=== PATIENT | female | born 1995 | race Caucasian/White ===

== ENCOUNTER 2019-04-24 09:45 | Outpatient (CLI) | payer BC, SELFPAY ==
--- NOTE | ~2019-04-24 | US_ITS ---
EXAMINATION: US OB <=14 wk fetus w TV DATE: 04/24/2019 10:28 INDICATION: First trimester dating TECHNIQUE: Real-time pelvic transabdominal and transvaginal ultrasound was performed. COMPARISON: None. FINDINGS: The uterus measures 11.1 x 5.8 x 4.2 cm. There is an intrauterine gestational sac. The mean sac diameter measures 1.0 cm which correlates with an estimated gestational age of 5 weeks and 4 day (s) (+/-) 4 day(s). No pole is identified. The right ovary measures 2.4 x 2.8 x 1.9 cm. The left ovary measures 2.2 x 1.8 x 2.1 cm. There is no free fluid in the pelvis. IMPRESSION: 1. Intrauterine gestational sac with an estimated gestational age of 5 weeks and 4 day(s) (+/-) 4 day (s) and an estimated delivery date of 12/21/2019 based on mean sac diameter. pole not seen, like ly due to early gestation. Reviewed, dictated and finalized at location A. USSION INSTRUMENT TUNER IMPRESSION: 1. Intrauterine gestational sac with an estimated gestational age of 5 weeks an d 4 day(s) (+/-) 4 day(s) and an estimated delivery date of 12/21/2019 based on mean sac diameter. pole not seen, likely due to early gestation.
== END 2019-04-24 09:46 | disposition home or self-care (01) ==
LOC: ANHIMG 09:50
PROVIDERS: PCP Family Medicine; Visit Provider Obstetrics & Gynecology
DX: Z36.9 Encounter for antenatal screening, unspecified (principal); Z3A.01 Less than 8 weeks gestation of pregnancy
CPT/HCPCS: 76801; 76817

== ENCOUNTER 2019-05-04 15:12 | Outpatient (CLI) | payer BC, SELFPAY ==
--- NOTE | ~2019-05-04 | US_ITS ---
EXAMINATION: US OB <=14 wk fetus w TV DATE: 05/04/2019 16:21 INDICATION: Suspicion of menses. Irregular menstruation. TECHNIQUE: Real-time pelvic ultrasound utilizing both a transvaginal and transabdominal probe was pe rformed. The interpreting radiologist was not present for the study. COMPARISON: None. FINDINGS: The uterus measures 11.1 x 4.4 x 5.8 cm. There is an intrauterine gestational sac with double decidu a sign and suggestion of subtle yolk sac but with no discernible pole. The in sac diameter unique ures 1.6 cm, which correlates with an estimated gestational age of 6 weeks and 3 days. The right ovary is not visualized. The left ovary measures 4.7 x 2.5 x 2.7 cm. Normal vascular flow o n the left ovary on color Doppler. There is no free fluid in the pelvis. IMPRESSION: 1. Intrauterine gestational sac with no discernible pole which could be due to early or failed . 2. Gestational age by ultrasound based upon mean sac diameter of 6 weeks 3 day(s) +/- 4 day(s) with ultrasound estimated date of delivery (HECTOR) of 12/25/2019. Consider short interval follow-up ultrasoun d for confirmation of viable and more definitive dating of . Reviewed, dictated and finalized at location A. MA DIRECTOR IMPRESSION: 1. Intrauterine gestational sac with no discernible pole which could be d ue to early or failed . 2. Gestational age by ultrasound based upon mean sac diameter of 6 weeks 3 day (s) +/- 4 day(s) with ultrasound estimated date of delivery (HECTOR) of 12/25/2019. Consider short interval follow-up ultrasound for confirmation of viable pregna ncy and more definitive dating of .
== END 2019-05-04 15:13 | disposition home or self-care (01) ==
LOC: ANHIMG 15:17
PROVIDERS: Visit Provider Obstetrics & Gynecology
DX: N92.5 Other specified irregular menstruation (principal); Z3A.01 Less than 8 weeks gestation of pregnancy
CPT/HCPCS: 76801; 76817

== ENCOUNTER 2019-05-19 15:30 | Outpatient (CLI) | payer BC, SELFPAY ==
--- NOTE | ~2019-05-19 | US_ITS ---
EXAMINATION: US OB <=14 wk fetus w TV DATE: 05/19/2019 16:30 INDICATION: Threatened , first trimester TECHNIQUE: Real-time pelvic transabdominal and transvaginal ultrasound was performed. COMPARISON: 05/04/2019, 04/23/2019 FINDINGS: The uterus measures 8.7 x 5.3 x 6.7 cm. There is an intrauterine gestational sac. There ar e subtle internal echoes within the gestational sac. No pole or yolk sac are identified. The me an sac diameter is 2.0 cm which correlates with an estimated gestational age of 6 weeks and 6 day(s) (+/-) 4 day(s). Mean sac diameter previously measured 1.6 cm. Interval change in growth is discordant with time interval. The right ovary measures 3.5 x 2.5 x 2.1 cm. The left ovary measures 3.4 x 2.1 x 2.8 cm. There is tra ce free fluid in the pelvis. IMPRESSION: 1. Intrauterine gestational sac with absence of an embryo with a heart beat greater than two weeks si nce prior ultrasound demonstrated a gestational sac without yolk sac. Findings are diagnostic of preg eliseo failure. Reviewed, dictated and finalized at location A. K PROCESSOR IMPRESSION: 1. Intrauterine gestational sac with absence of an embryo with a heart beat gre ater than two weeks since prior ultrasound demonstrated a gestational sac witho ut yolk sac. Findings are diagnostic of failure.
== END 2019-05-19 15:31 | disposition home or self-care (01) ==
PROVIDERS: Visit Provider Obstetrics & Gynecology
DX: O20.0 Threatened abortion (principal); Z3A.00 Weeks of gestation of pregnancy not specified
CPT/HCPCS: 76801; 76817

== ENCOUNTER 2019-05-27 00:34 | Day surgery (SDC) | payer BC, SELFPAY ==
[2019-05-26 10:14] VITALS: BMI 22.8
--- NOTE | 2019-05-27 07:46 | PM.IMHP ---
H&P: HPI History of Present Illness Chief complaint: Missed AB Narrative: Kassy Brooke is a 24 year old female 11 weeks by LMP has had serial us showing 6 week GS with no cardiac activity. No sig bleed or cramp, had opted for expectant management. As no change and not passed would like D&C to evacuate uterine contents. Review of Systems Review of Systems: All systems reviewed & are unremarkable except as noted in HPI and below PMFSH Past Medical History Medical History Anxiety Depression Family History Family History Sibling Asthma Social History Social History Smoking status: Never smoker Alcohol intake: current Meds Home Medications and Allergies Home Medications Medication Instructions Recorded Confirmed Type 21-iron fu-folic acid 1 tablet PO DAILY 05/26/19 05/26/19 History [ Complete] Allergies Allergy/AdvReac Type Severity Reaction Status Date / Time No Known Allergies Allergy Verified 05/26/19 10:15 Exam Const: General: no acute distress Resp: Auscultation: clear to auscultation bilaterally Cardio: Rate: regular rate Rhythm: regular rhythm GI: GI Palp: Yes Soft to palpation Auscultation: normal bowel sounds : External Female Exam: normal external appearance Other: uterus 8 week size Assessment and Plan Assessment and plan (1) Missed : Code(s): O02.1 - Missed Status: Acute Assessment and Plan: suction curettage
[2019-05-27 13:00] VITALS: BP 109/68; PULSE 72; RESP 18; TEMP 36.8; O2SAT 100
[2019-05-27] MEDS: LACTATED RINGERS 1,000 ML 30 ML IV CONT (13:00)
--- NOTE | 2019-05-27 13:15 | WPDANESEPPF ---
Anes - Initial Pre Proc Eval Procedure: Operation Date: 05/27/19 14:30 Proposed Procedures p Suction Dilation And Curettage - Bubba Carpio MD Date/Time: 05/27/19 13:15 Surgeon: Bubba Carpio MD Pre Op Diagnosis: Missed AB Patient Data Age: 24 Gender: F Height: 1.57 m Weight: 56.7 kg Allergies Allergy/AdvReac Type Severity Reaction Status Date / Time No Known Allergies Allergy Verified 05/26/19 10:15 Home Medications Medication Instructions Recorded Confirmed Type 21-iron fu-folic acid 1 tablet PO DAILY 05/26/19 05/26/19 History [ Complete] oxycodone-acetaminophen [Percocet] 1 tablet PO Q4H PRN #10 tablet 05/27/19 Rx Patient hx anesthesia problems: none Family hx anesthesia problems: none PMFSH Past Medical History Medical History Anxiety Depression Family History Family History Sibling Asthma Social History Social History Smoking status: Never smoker Alcohol intake: current Anes - Eval Final PreProcedure Day of Procedure 05/27/19 13:15 Patient weight: normal Heart: regular rate and rhythm Lungs: clear to auscultation and normal air movement Airway: Mallampati scale class 1 Neurological: alert and oriented Last oral intake: >/= 8 hours ASA classification: II Emergent: no Anesthetic plan: proceed Anesthesia type and monitoring: general GIVS and standard monitoring Informed Consent: The patient's anesthetic plan and its attendant risks and benefits were discussed with the patient/family/POA. Questions were solicited and answers provided to the satisfaction of the patient/family/POA.
[2019-05-27] MEDS: KETOROLAC 30 MG/ML VIAL (*BKC) IV PUSH (14:26)
[2019-05-27 14:32] VITALS: BP 124/78; PULSE 81; RESP 18; O2SAT 100
--- NOTE | 2019-05-27 14:32 | PM.OP ---
Procedure Note - Brief Procedure Note - Brief Date of procedure: 05/27/19 Pre-op diagnosis: Missed AB Post-op diagnosis: same Procedure performed: suction curettage Description of procedure: Patient was prepped and draped in the usual manner for this procedure. Cervix grasped with single-tooth tenaculum and dilated to allow the 8mm suction curette to be placed. Current was then used to remove the endometrial tissue. Sharp curette throughout with no significant tissue remaining. No significant bleeding. Suction curette was placed 1 last time with no significant bleeding. At this point seizure was considered terminated. Patient was then sent to recovery room in stable condition. Anesthesia: GLMA Surgeon: Bubba Carpio MD Estimated blood loss (mL): 50 Drains: No Packing: No Pathology: yes Complications: No immediate complications Condition: stable Disposition: PACU Findings: moderate POC
[2019-05-27 15:02] VITALS: BP 100/61; PULSE 89; RESP 14
[2019-05-27 15:32] VITALS: BP 103/64; PULSE 82; RESP 14
[2019-05-27 15:58] VITALS: BP 111/60; PULSE 76; RESP 14
[2019-05-27] MEDS: RHO(D) IMMUNE GLOBULIN 300 MCG SYRINGE IM (16:19)
== END 2019-05-27 16:30 | disposition home or self-care (01) ==
PROVIDERS: PCP Family Medicine; Visit Provider Obstetrics & Gynecology
PROC: (CPT 59820; principal; 2019-05-27 14:30)
DX: O02.1 Missed abortion (principal)
CPT/HCPCS: 59820; 36415; 86850; 86900; 86901; 88305; 90384; A9270; J1885; J2250; J2405; J2704; J2790; J3010; J7120

== ENCOUNTER 2019-08-18 09:22 | Emergency (ER) | payer BC, SELFPAY ==
[2019-08-18 09:30] VITALS: BP 119/68; PULSE 74; RESP 16; TEMP 37.2; O2SAT 100
--- NOTE | 2019-08-18 09:40 | ED.URI ---
HPI - URI/Sore Throat General Stated Complaint: ear pain/itching Time Seen by Provider: 08/18/19 09:40 Source: patient and RN notes reviewed History of Present Illness HPI Narrative: Patient is a 24-year-old female that presents the urgent care with complaints of left ear pain. Patient states that it started yesterday morning and she has been putting [id number] generic eardrops in the ear. Patient denies any use of peroxide, water, Q-tips in the ear. Denies recent swimming. Denies of any fever, nausea, vomiting. Has been using Tylenol as needed for pain. Patient states that she had a miscarriage in March but is actively trying to get however, has not started her period again. No other acute complaints. No acute distress noted. Patient aware the plan of care. Related Data Allergies Allergy/AdvReac Type Severity Reaction Status Date / Time No Known Allergies Allergy Verified 08/18/19 09:44 Review of Systems Review of Systems: Narrative: CONSTITUTIONAL: Denies fever, chills, or sweats. EYES: Denies visual changes, redness, or discharge. ENT: Reports of left ear pain CARDIOVASCULAR: Denies chest pain, palpitations, or edema. RESPIRATORY: Denies cough or dyspnea. GASTROINTESTINAL: Denies abdominal pain, nausea, vomiting, or diarrhea. GENITOURINARY: Denies dysuria or hematuria. SKIN: Denies rash or itching. MUSCULOSKELETAL: Denies back pain, joint pain, or myalgia. NEUROLOGIC: Denies headache, numbness, or weakness. All other systems reviewed are negative, except as documented in HPI. PMFSH Social History Social History Smoking status: Never smoker Alcohol intake: current Comments At the time of my signature, I reviewed and agree with the nursing past medical, surgical, social, and family history. There is no relevant family history pertinent to the patient complaint. Exam Narrative: Exam Narrative: GENERAL: This is a well-nourished, well-developed patient, in no apparent distress. HEAD: normocephalic, atraumatic. EYES: PERRL. Sclera clear/white. Vision is grossly intact. EARS: External ears normal, right auditory canals clear and without drainage, left auditory canal with notable moderate edema and clear drainage with erythemic and slightly injected left TM, right TMs normal without perforation. Hearing grossly intact. NOSE: External nose normal with no obvious nasal discharge, nares without redness, no rhinorrhea. THROAT: Mucous membranes moist NECK: Neck supple, non-tender without lymphadenopathy, masses or thyromegaly. CARDIOVASCULAR: Regular rate and rhythm without murmurs, gallops, or rubs. RESPIRATORY: Clear to auscultation. Breath sounds equal bilaterally. No wheezes, rales, or rhonchi. SKIN: warm, intact with no suspicious lesions or rash, good texture and turgor. NEURO: awake, alert, and oriented to person, place and time. There were no obvious focal neurologic abnormalities. EXTREMITIES: No clubbing, cyanosis, or edema. Course Vital Signs Vital signs: Vital Signs Temperature 98.9 F 08/18/19 09:30 Pulse Rate 74 08/18/19 09:30 Respiratory Rate 16 08/18/19 09:30 Blood Pressure 119/68 08/18/19 09:30 Pulse Oximetry 100 08/18/19 09:30 Temperature 98.9 F 08/18/19 09:30 Pulse Rate 74 08/18/19 09:30 Respiratory Rate 16 08/18/19 09:30 Blood Pressure 119/68 08/18/19 09:30 Pulse Oximetry 100 08/18/19 09:30 Reviewed MDM - URI/Sore Throat MDM Narrative Medical decision making narrative: Advised the patient to use prescription eardrops as directed to the left ear. Complete oral antibiotic regimen as prescribed. Make sure to eat and drink with the medication. Continue to use Tylenol as needed for pain. May also use a cool compress to the outside of the ear for comfort. Do not use anything in the ear with the exception of prescription eardrops such as, Q-tips, peroxide, water. If you develop any increase in s
== END 2019-08-18 09:55 | disposition home or self-care (01) ==
PROVIDERS: Emergency Provider Nurse Practitioner Family; PCP Family Medicine
DX: H60.502 Unspecified acute noninfective otitis externa, left ear (principal); H66.92 Otitis media, unspecified, left ear
CPT/HCPCS: 99213; G0463

== ENCOUNTER 2019-12-17 12:33 | Outpatient (CLI) | payer BC, SELFPAY ==
--- NOTE | ~2019-12-17 | US_ITS ---
EXAMINATION: US OB <= 14 weeks fetus DATE: 12/17/2019 13:33 INDICATION: Suppression of menstruation. TECHNIQUE: Real-time transabdominal and transvaginal obstetric ultrasound. FINDINGS: No prior studies for comparison. The uterus measures 14.3 x 9.8 x 5.1 cm. There is an intrauterine gestational sac, with pole id entified. The crown rump length measures 2 cm, which correlates with a estimated gestational age of 8 weeks 4 days. heart tones are identified measuring 145 BPM. Ovaries are normal with follicu lar changes. No significant ovarian or adnexal mass. IMPRESSION: 1. SL IUP with an EGA of 8 weeks, 4 days (EDC by current ultrasound of 07/24/2020). Reviewed, dictated and finalized at location A. IMPRESSION: 1. SL IUP with an EGA of 8 weeks, 4 days (EDC by current ultrasound of 07/25/19).
== END 2019-12-17 12:34 | disposition home or self-care (01) ==
LOC: ANHIMG 12:36
PROVIDERS: PCP Family Medicine; Visit Provider Obstetrics & Gynecology
DX: Z34.91 Encounter for supervision of normal pregnancy, unspecified, first trimester (principal); Z3A.08 8 weeks gestation of pregnancy
CPT/HCPCS: 76801

== ENCOUNTER 2020-05-19 14:14 | Outpatient (CLI) | payer BC, SELFPAY ==
[2020-05-19 14:39] VITALS: BP 116/65; PULSE 94
[2020-05-19 14:46] VITALS: BP 111/61; BP 116/65; PULSE 87; PULSE 96; TEMP 37.2
--- NOTE | 2020-05-19 14:50 | PC.NURSE ---
Dr. 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 Instructed pt to stop folding her socks down because they are too tight and to start wearing compression stockings. Informed of BP's, reactive NST, temp 99.0 and pt was feeling 4 contractions per hour while working. 1 contraction noted on monitor at this time. Orders received to discharge pt to home.
[2020-05-19 15:01] VITALS: BP 109/62; PULSE 97
[2020-05-19 15:15] VITALS: BP 109/62; PULSE 99; TEMP 36.7
--- NOTE | 2020-05-20 09:43 | PM.OBTRLD ---
OB - Triage/Final Diagnosis Visit Information Comments/Additional reasons for admission: I have assessed the risk for this patient, Kassy Brooke, and determined that she would benefit from observation care. Evaluation Vital signs: Vital Signs - 24 hr 05/19/20 14:39 05/19/20 14:46 05/19/20 15:01 Temperature 37.2 C Pulse Rate 94 96 97 Blood Pressure 116/65 111/61 109/62 Blood Pressure [Left Arm] 116/65 05/19/20 15:15 Temperature 36.7 C Pulse Rate 99 Blood Pressure Blood Pressure [Left Arm] 109/62 Final Diagnosis (1) Headache: Code(s): R51.9 - Headache, unspecified Status: Acute
== END 2020-05-19 15:32 | disposition home or self-care (01) ==
LOC: ANHOBOP 14:23 → ANHOBPP 14:24
PROVIDERS: Visit Provider Obstetrics & Gynecology
DX: R51.9 Headache, unspecified (principal); O13.9 Gestational [pregnancy-induced] hypertension without significant proteinuria, unspecified trimester; Z3A.00 Weeks of gestation of pregnancy not specified
CPT/HCPCS: 59025; 99199

== ENCOUNTER 2020-05-23 13:52 | Outpatient (CLI) | payer BC, SELFPAY ==
--- NOTE | ~2020-05-23 | XR_ITS ---
EXAMINATION: XR ankle LT min 3V, XR foot LT min 3V DATE: 05/23/2020 14:34 INDICATION: Medial left foot pain TECHNIQUE: 1. Anteroposterior, mortise, additional oblique and lateral view of the left ankle were obtained. 2. Dorsoplantar, two oblique and lateral views of the left foot were obtained. COMPARISON: None. FINDINGS: Alignment of the left foot and ankle is normal. No fracture or osteochondral lesion. Joint spaces are well maintained. No ankle joint effusion. Diffuse soft tissue swelling about the left ankle and hind foot. IMPRESSION: 1. No osseous abnormality. Reviewed, dictated and finalized at location B. AL TRANSPORTATION MANAGER IMPRESSION: 1. No osseous abnormality. IMPRESSION: 1. No osseous abnormality.
== END 2020-05-23 13:53 | disposition home or self-care (01) ==
PROVIDERS: Visit Provider Obstetrics & Gynecology
DX: M79.671 Pain in right foot (principal)
CPT/HCPCS: 73610; 73630

== ENCOUNTER 2020-05-24 11:38 | Outpatient (RCR) | payer BC, SELFPAY ==
[2020-05-24 13:24] LABS: Hematocrit 28.4 % (37.0-47.0); Hemoglobin 9.3 g/dL (12.0-15.0); Mean Corpuscular HGB Conc 32.7 g/dl (32-36); Mean Corpuscular Hemoglobin 28.8 pg (26-34); Mean Corpuscular Volume 87.9 fl (80-100); Platelet Count Result 294 k/mm3 (150-375); Red Blood Count 3.23 M/mm3 (4.2-5.4); Red Cell Distribution Width 12.6 % (11.5-14.5); White Blood Count 10.1 K/mm3 (4.5-10.0)
[2020-05-24 13:48] LABS: Glucose 1 Hour PP 50gm Dose 153 mg/dL
[2020-05-24 14:26] LABS: HIV 1/2 Ab P24 Ag Result Negative (Negative)
[2020-05-27] MEDS: RHO(D) IMMUNE GLOBULIN 300 MCG SYRINGE IM (11:03)
== END 2020-08-22 23:59 | disposition home or self-care (01) ==
LOC: ANHLAB 11:38
PROVIDERS: Visit Provider Obstetrics & Gynecology
DX: Z29.13 Encounter for prophylactic Rho(D) immune globulin (principal); O36.0190 Maternal care for anti-D [Rh] antibodies, unspecified trimester, not applicable or unspecified; Z11.4 Encounter for screening for human immunodeficiency virus [HIV]; Z3A.00 Weeks of gestation of pregnancy not specified
CPT/HCPCS: 36415; 82947; 85027; 85461; 86703; 90384; 96372; G0432; J2790

== ENCOUNTER 2020-06-03 07:06 | Outpatient (CLI) | payer BC, SELFPAY ==
[2020-06-03 07:50] LABS: Glucose Fasting Gestational 80 mg/dL (>/=95)
[2020-06-03 09:22] LABS: Glucose 1 Hour Gest 152 mg/dL (>/=180)
[2020-06-03 10:28] LABS: Glucose 2 Hour Gest 126 mg/dL (>/= 155)
[2020-06-03 11:30] LABS: Glucose 3 Hour Gest 119 mg/dL (>/=140)
== END 2020-06-03 07:07 | disposition home or self-care (01) ==
PROVIDERS: Visit Provider Obstetrics & Gynecology
DX: R73.09 Other abnormal glucose (principal)
CPT/HCPCS: 36415; 82951; 82952

== ENCOUNTER 2020-06-06 20:17 | Observation (INO) | payer BC, SELFPAY ==
[2020-06-06 20:38] VITALS: BP 118/71; PULSE 89
[2020-06-06 21:00] VITALS: TEMP 36.8; BMI 30.2
[2020-06-06 21:01] LABS: Add Urine Microscopic? YES; Appearance Urine Cloudy (Clear); Bacteria Urine Trace /hpf; Bilirubin Urine Negative (Negative); Blood Urine Negative (Negative); Color Urine Yellow (Yellow); Glucose Urine UA Negative (Negative); Ketones Urine 2+ mg/dL (Negative); Leukocyte Esterase Ur Negative LEU/UL (Negative); Mucus Urine Rare /lpf; Nitrate Urine Negative (Negative); Protein Urine 1+ mg/dL (Negative); RBC Urine 0-2 /hpf (0-2); Specific Grav Ur 1.023 (1.001-1.035); Squamous Epithelial Cell Urine Few /hpf (Few); Urobilinogen Urine Negative mg/dL (<2.0); WBC Urine 0-3 /hpf
--- NOTE | 2020-06-06 22:35 | OBADM ---
This patient, Kassy Brooke, admitted to the OB room OB Post 117 for observation. Patient/family oriented to hospital policies and general routines including ID bracelet, bed and alarms, visiting hours, pain management, procedures, bathroom and other care routines, personal items, smoking policy, room service/diet, and visiting hours. Patient/Family are encouraged to report perceived risks to care and to ask questions if they do not understand what they are told or what they should do.
--- NOTE | 2020-06-09 11:14 | P.PNOB_ITS ---
OB - Triage/Final Diagnosis Visit Information Comments/Additional reasons for admission: I have assessed the risk for this patient, Kassy Brooke, and determined that she would benefit from observation care. Evaluation Laboratory results: Laboratory Tests 06/06/20 20:38 Urine Color Yellow Urine Appearance Cloudy H Urine pH 5.0 Ur Specific [place] 1.023 Urine Protein 1+ H Urine Glucose (UA) Negative Urine Ketones 2+ H Ur Blood (Man) Negative Urine Nitrate Negative Urine Bilirubin Negative Urine Urobilinogen Negative Leukocyte Esterase Rfl Negative Urine RBC 0-2 Urine WBC 0-3 Ur Squamous Epith Cells Few Urine Bacteria Trace Urine Mucus Rare Final Diagnosis (1) Abdominal pain affecting : Code(s): O26.899 - Other specified related conditions, unspecified trimester; R10.9 - Unspecified abdominal pain Status: Acute
== END 2020-06-06 23:09 | disposition home or self-care (01) ==
PROVIDERS: Obstetrics & Gynecology; Admitting Provider Obstetrics & Gynecology; Visit Provider Obstetrics & Gynecology
DX: O26.893 Other specified pregnancy related conditions, third trimester (principal); R10.9 Unspecified abdominal pain; Z3A.33 33 weeks gestation of pregnancy
CPT/HCPCS: 81001; G0378; G0379

== ENCOUNTER 2020-06-20 13:27 | Observation (INO) | payer BC, SELFPAY ==
[2020-06-20 13:35] VITALS: BMI 31.8
[2020-06-20 13:45] VITALS: BP 112/65; PULSE 90
[2020-06-20 14:00] VITALS: BP 118/61; PULSE 95
[2020-06-20 14:15] VITALS: BP 122/67; PULSE 101
--- NOTE | 2020-06-23 06:12 | PM.OBTRLD ---
OB - Triage/Final Diagnosis Visit Information Reason for evaluation: threatened labor Comments/Additional reasons for admission: I have assessed the risk for this patient, Kassy Brooke, and determined that she would benefit from observation care.
== END 2020-06-20 15:58 | disposition home or self-care (01) ==
PROVIDERS: Admitting Provider Obstetrics & Gynecology; Visit Provider Obstetrics & Gynecology
DX: O47.03 False labor before 37 completed weeks of gestation, third trimester (principal); Z3A.35 35 weeks gestation of pregnancy
CPT/HCPCS: 84112; G0378; G0379

== ENCOUNTER 2020-07-06 18:13 | Observation (INO) | payer BC, SELFPAY ==
--- NOTE | ~2020-07-06 | US_ITS ---
US OB BPP wo non-stress DATE: 07/06/2020 20:04 INDICATION: Decreased movement TECHNIQUE: Real-time imaging and Doppler analysis COMPARISON: None FINDINGS: Live [place] intrauterine gestation, fetus in vertex presentation, longitudinal lie. Feta l heart rate of 126 bpm. Anterior placenta. Subjectively normal amount of amniotic fluid. BIOPHYSICAL PROFILE reported by cable television line technician: breathin out of 2 movement: 0 out of 2; there were 2 mm and 30 minutes, 1 movement shy of the 3 movements in 30 m inutes required for scoring tone: 2 out of 2 Amniotic fluid pocket: 2 out of 2 Total score: 6 out of 8 IMPRESSION: Biophysical profile score of 6 out of 8 Reviewed, dictated and finalized at Location A. Reviewed, dictated and finalized at location A.
[2020-07-06 18:23] VITALS: BP 126/75; PULSE 89
[2020-07-06 18:30] VITALS: BP 118/84; PULSE 94
[2020-07-06 18:45] VITALS: BP 102/84; PULSE 91
[2020-07-06 18:51] VITALS: BMI 33.5
--- NOTE | 2020-07-06 18:52 | OBADM ---
This patient, Kassy Brooke, admitted to the OB room OB Post 116 for observation. Patient/family oriented to hospital policies and general routines including ID bracelet, bed and alarms, visiting hours, pain management, procedures, bathroom and other care routines, personal items, smoking policy, room service/diet, and visiting hours. Patient/Family are encouraged to report perceived risks to care and to ask questions if they do not understand what they are told or what they should do.
[2020-07-06 19:00] VITALS: BP 116/76; PULSE 101
[2020-07-06 19:15] VITALS: BP 117/69; PULSE 95
--- NOTE | 2020-07-07 19:30 | PM.OBTRLD ---
OB - Triage/Final Diagnosis Visit Information Comments/Additional reasons for admission: I have assessed the risk for this patient, Kassy Brooke, and determined that she would benefit from observation care. Final Diagnosis (1) Abdominal pain affecting : Code(s): O26.899 - Other specified related conditions, unspecified trimester; R10.9 - Unspecified abdominal pain Status: Acute (2) Vaginal discharge: Code(s): N89.8 - Other specified noninflammatory disorders of vagina Status: Acute
== END 2020-07-06 21:34 | disposition home or self-care (01) ==
PROVIDERS: Admitting Provider Obstetrics & Gynecology; Visit Provider Obstetrics & Gynecology
DX: O26.893 Other specified pregnancy related conditions, third trimester (principal); R10.9 Unspecified abdominal pain; N89.8 Other specified noninflammatory disorders of vagina; Z3A.37 37 weeks gestation of pregnancy
CPT/HCPCS: 76819; G0378; G0379

== ENCOUNTER 2020-07-08 11:52 | Observation (INO) | payer BC, SELFPAY | END 2020-07-08 14:00 | disposition home or self-care (01) | PROVIDERS: Admitting Provider Obstetrics & Gynecology; Visit Provider Obstetrics & Gynecology | DX: O47.9 False labor, unspecified (principal); Z3A.00 Weeks of gestation of pregnancy not specified | CPT/HCPCS: G0378; G0379 ==

== ENCOUNTER 2020-07-17 20:40 | Observation (INO) | payer BC, SELFPAY ==
--- NOTE | 2020-07-17 20:40 | OBADM ---
This patient, Kassy Brooke, admitted to the OB room Labor/Delivery/Recovery 108 for observation. Patient/family oriented to hospital policies and general routines including ID bracelet, bed and alarms, visiting hours, pain management, procedures, bathroom and other care routines, personal items, smoking policy, room service/diet, and visiting hours. Patient/Family are encouraged to report perceived risks to care and to ask questions if they do not understand what they are told or what they should do.
[2020-07-17 22:47] VITALS: BMI 32.2
== END 2020-07-17 23:06 | disposition home or self-care (01) ==
PROVIDERS: Admitting Provider Obstetrics & Gynecology; Visit Provider Obstetrics & Gynecology
DX: O47.1 False labor at or after 37 completed weeks of gestation (principal); Z3A.38 38 weeks gestation of pregnancy
CPT/HCPCS: 84112; G0378; G0379

== ENCOUNTER 2020-07-20 07:24 | Inpatient (IN) | payer BC, SELFPAY ==
[2020-07-20] VITALS (65 sets, daily range): BP systolic 64–126; BP diastolic 25–77; PULSE 75–110; RESP 16; TEMP 36.6–36.9; O2SAT 100; BMI 29.9
--- OUTSIDE RECORDS SUMMARY | 2020-07-20 07:28 | XMS_ITS | Encounter Summary ---
:1995 Author Reason for Visit return OB visit Assessment and Plan 1. Routine care Discussion Note: None recorded.Patient educational handouts: No information available. Plan of Care Reminders Provider Appointments None ? ? recorded. Lab None ? ? recorded. Referral None ? ? recorded. Procedures None ? ? recorded. Surgeries None ? ? recorded. Imaging None ? ? recorded. Medications Name Start Date ? ? Afluria Qd 2018- (36 mos up)(PF)60 mcg (15 mcg x4)/0 .5 mL IM syringe ? ADM 0.5ML IM UTD DOK 100 mg capsule ? TAKE ONE CAPSULE BY MOUTH TWICE DAILY FeroSul 325 mg (65 mg iron) tablet ? TAKE ONE TABLET BY MOUTH TWICE DAILY Notes: PNV; Vit C; Tylenol PRN; B12 Medications Administered None recorded. Vitals Weight Blood Pressure 177 lbs 130/70 mm[Hg] Results Lab Results None recorded. Allergies Code Code System Name Reaction Severity Onset NKDA ? ? ? Problems Name Status Onset Date Source ? Active 12/16/2019 History Procedures Date Name Performed by ?
--- OUTSIDE RECORDS SUMMARY | 2020-07-20 07:28 | XMS_ITS | Encounter Summary ---
:1995 Author Reason for Visit return OB visit Assessment and Plan 1. Routine care 2. Impaired glucose tolerance ? glucose tolerance test, [facility], 3-hour 3. Anemia of ? ferrous sulfate 325 mg (65 mg iron) tablet ? Colace 100 mg capsule Discussion Note: None recorded.Patient educational handouts: No information available. Plan of Care Reminders Provider Appointments None ? ? recorded. Lab Glucose [place] [facility] Tolerance Test, 05/27/2020 Hospital (Lab) Gestational, 3-Hour Referral None ? ? recorded. Procedures None [...] Administered None recorded. Vitals Weight Blood Pressure 164.4 lbs 116/76 mm[Hg] Results Lab Results Date Name [facility]
--- OUTSIDE RECORDS SUMMARY | 2020-07-20 07:28 | XMS_ITS | Encounter Summary ---
:1995 Author Care Team Providers Name Role Phone Igor K Cruzito Primary Care Provider [phone] Reason for Visit return OB visit Assessment and Plan 1. Routine care ? glucose tolerance test, ge stational, 1-hour ? HIV (1+2) Ab screen, serum ? CBC ? Rh immune globulin screeni ng Discussion Note: None recorded.Patient educational handouts: No information available. Plan of Care Reminders Provider Appointments None ? ? recorded. Lab Glucose ? Tolerance Test, 05/12/2020 Gestational, 1-Hour ? HIV (1+2) Ab ? Screen, Serum 05/12/2020 ? Cbc In-House Re sults 05/12/2020 ? Rh Immune In-Hous e Results Globulin Screening 05/12/2020 Referral None ? ? recorded. Procedures None ? ? recorded. Surgeries None ? ? recorded. Imaging None ? ? recorded. Medications Name Start Date ? ? Afluria Qd 2019- (36 mos up)(PF)60 mcg (15 mcg x4)/0 .5 mL IM syringe ? ADM 0.5ML IM UTD
--- OUTSIDE RECORDS SUMMARY | 2020-07-20 07:28 | XMS_ITS | Encounter Summary ---
[...] Administered None recorded. Vitals Weight Blood Pressure 172.5 lbs 122/72 mm[Hg] Results Lab Results None recorded. Allergies Code Code System Name Reaction Severity Onset NKDA ? ? ? Problems Name Status Onset Date Source ? Active 12/16/2019 History Procedures Date Name Performed by ?
--- OUTSIDE RECORDS SUMMARY | 2020-07-20 07:28 | XMS_ITS | Encounter Summary ---
[...] Administered None recorded. Vitals Weight Blood Pressure 174 lbs 118/80 mm[Hg] Results Lab Results None recorded. Allergies Code Code System Name Reaction Severity Onset NKDA ? ? ? Problems Name Status Onset Date Source ? Active 12/16/2019 History Procedures Date Name Performed by ?
--- OUTSIDE RECORDS SUMMARY | 2020-07-20 07:28 | XMS_ITS ---
:1995 Author Care Team Providers Name Role Phone DALLAS FOSTER Primary Care Provider [phone] Allergies Code Code System Name Reaction Severity Status Onset NKDA ? Medications Name Status Start Date Stop Date ? ? acetaminophen 300 mg-codeine 30 mg tablet Completed ? 04/21/2019 TK 1 T PO Q 4 TO 6 H PRN P Afluria Qd 2018- (36 mos up)(PF)60 mcg (15 mcg x4)/0.5 mL IM s yringe Active ? Not available ADM 0.5ML IM UTD amoxicillin 875 mg tablet Completed ? 2019 TK 1 T PO Q 12 H Ciprodex 0.3 %-0.1 % ear drops,suspension Completed ? 08/31/2019 INSTILL 4 DROPS INTO LEFT EAR Q 12 H FOR 7 DAYS Estarylla 0.25 mg-35 mcg tablet Completed ? 12/16/2019 TK 1 T PO QD ferrous fumarate 324 mg (106 mg iron) tablet Completed ? 04/21/2019 TK 1 T PO D hydrocodone 5 mg-acetaminophen 325 mg tablet Completed ? 04/21/2019 TK 1 T PO Q 4 H PRN P ibuprofen 600 mg tablet Completed ? 04/21/19 TK 1 T PO Q 6 H PRN P ibuprofen 800 mg tablet Completed ? 10/14/19 TK 1 T PO Q 8 H misoprostol 200 mcg tablet Completed ? 10/13 TK 2 TS PO THE NIGHT PRIOR TO PROCEDURE naproxen 500 mg tablet Completed ? 0 nitrofurantoin monohydrate/macrocrystals 100 mg capsule Complete d ? 04/21/2019 TK 1 C PO Q 12 H FOR 7 DAYS. TK WITH FOOD NuvaRing 0.12 mg-0.015 mg/24 hr vaginal Completed ? 04/21/2019 INSERT 1 RING VAGINALLY DIRECTED FOR 3 WEEKS AND REMOVE FO R ONE WEEK oxycodone-acetaminophen 5 mg-32
--- OUTSIDE RECORDS SUMMARY | 2020-07-20 07:28 | XMS_ITS ---
:1995 Author Care Team Providers Name Role Phone [facility] Primary Care Provider Unavailable Allergies Code Code System Name Reaction Severity [...] 0.5ML IM UTD amoxicillin 875 mg tablet Active ? Not av ailable TK 1 T PO Q 12 H Ciprodex 0.3 %-0.1 % ear drops,suspension Active ? Not available INSTILL 4 DROPS INTO LEFT EAR Q 12 H FOR 7 DAYS DOK 100 mg capsule Active ? Not available TAKE ONE CAPSULE BY MOUTH TWICE DAILY Estarylla 0.25 mg-35 mcg tablet Active ? Not available TK 1 T PO QD FeroSul 325 mg (65 mg iron) tablet Active ? Not available TAKE ONE TABLET BY MOUTH TWICE DAILY ferrous fumarate 324 mg (106 mg iron) tablet Completed ? 04/21/2019 TK 1 T PO D hydrocodone 5 mg-acetaminophen 325 mg tablet Completed ? 04/21/2019 TK 1 T PO Q 4 H PRN P ibuprofen 600 mg tablet Completed ? 04/21/19 20 TK 1 T PO Q 6 H PRN P ibuprofen 800 mg tablet Active ? Not avai lable TK 1 T PO Q 8 H misoprostol 200 mcg tablet Active ? Not a vailable TK 2 TS PO THE NIGHT PRIOR TO PROCEDURE naproxen 500 mg tablet Completed ? 0 nitrofurantoin monohydrate/macrocrystals 100 mg capsule Complete d ? 04/21/2019
--- NOTE | 2020-07-20 07:35 | PM.IMHP ---
H&P: HPI History of Present Illness Date/Time: 07/20/20 07:35 Kassy is a 25yo @ 39.0wks who presents for elective induction of labor. She has been having contractions on and off; was found to be /-2 in clinic. No leakage of fluid or vaginal bleeding. She has had regular care with Kerry COY. Her has been complicated by: - Rh negative s/p rhogam - anemia on iron BID - Elevated glucola; normal 3hr OGTT - Parvo non-immune Chief Complaint: induction of labor Review of Systems Review of Systems: All systems reviewed & are unremarkable except as noted in HPI and below (HPI) [facility] Past Medical History Medical History Anxiety Depression Family History Family History Sibling Asthma Social History Social History Smoking status: Never smoker Alcohol intake: current Substance use: never Gender identity (if verbalized by the patient): Female Spiritual care concerns: No Meds Home Medications and Allergies Home Medications Medication Instructions Recorded Confirmed Type PNV cmb#95-ferrous fumarate-FA 1 tablet PO DAILY 05/19/20 07/17/20 History [] ferrous sulfate [Iron (ferrous 325 mg PO DAILY 07/09/20 07/17/20 History sulfate)] Allergies Allergy/AdvReac Type Severity Reaction Status Date / Time No Known Allergies Allergy Verified 08/18/19 09:44 Exam Const: General: cooperative, healthy appearing, comfortable, no acute distress and well developed Resp: Effort & Inspection: normal respiratory effort and able to speak in complete sentences Cardio: Rate: regular rate GI: Inspection: normal to inspection and non-distended GI Palp: No abdominal tenderness and Yes Soft to palpation : Other: FHT's: 130's/ mod alvin/ + accels/ no decels - cat 1 TOCO; irregular ctx's q _min Membranes: intact Cervix; /-2 Presentation: cephalic Skin: General skin exam: normal color Neuro: General: patient oriented x3 Extrem: General: normal to inspection Psych: Appearance: grossly normal Affect: normal affect Attitude: cooperative Assessment and Plan Assessment and plan (1) Encounter for elective induction of labor: Code(s): Z34.90 - Encounter for supervision of normal , unspecified, unspecified trimester Status: Acute (2) : Qualifiers: Weeks of gestation: 39 weeks Qualified Code(s): Z3A.39 - 39 weeks gestation of Code(s): Z34.90 - Encounter for supervision of normal , unspecified, unspecified trimester Status: Acute (3) Rh negative status during : Qualifiers: Trimester: third trimester Qualified Code(s): O26.893 - Other specified related conditions, third trimester; Z67.91 - Unspecified blood type, Rh negative Code(s): O26.899 - Other specified related conditions, unspecified trimester; Z67.91 - Unspecified blood type, Rh negative Status: Acute Additional Plan - Admit to L&D for elective IOL - Pitocin augmentation per protocol - Plan for AROM when more regular contractions - Continuous monitoring; currently reassuring - Anesthesia consult PRN pain - GBS negative
--- NOTE | 2020-07-20 07:40 | WPDHPUPDATE1 ---
History and Physical Update Update Date/Time: 07/20/20 07:40 History and Physical has been reviewed, including an updated exam of the patient. There are NO changes in the patient's condition. Risks, benefits, and alternatives have been discussed and questions answered. Patient agrees to proceed with procedure.
[2020-07-20 08:17] LABS: Basophils Percent Auto 0.3 % (0.2-1.2); Eosinophils Absolute Auto 0.1 K/mm3 (0-0.3); Hemoglobin 9.9 g/dL (12.0-15.0); Immature Granulocyte Absolute 0.05 K/mm3 (0.00-0.031); Immature Granulocyte Percent A 0.5 % (0-0.5); Lymphocytes Absolute Auto 2.11 K/mm3 (0.9-3.2); Lymphocytes Percent Auto 23.1 % (18.3-44.2); Mean Corpuscular HGB Conc 31.9 g/dl (32-36); Mean Corpuscular Hemoglobin 26.5 pg (26-34); Mean Corpuscular Volume 83.1 fl (80-100); Mean Platelet Volume 10.3 fl (7.4-10.4); Monocytes Absolute Auto 0.8 K/mm3 (0.1-0.6); Neutrophils Absolute Auto 6.1 K/mm3 (1.3-6.7); Neutrophils Percent Auto 66.1 % (45.5-73.1); Platelet Count Result 250 k/mm3 (150-375); Red Blood Count 3.73 M/mm3 (4.2-5.4); Red Cell Distribution Width 14.1 % (11.5-14.5); White Blood Count 9.2 K/mm3 (4.5-10.0)
[2020-07-20] MEDS: OXYTOCIN 30 UNITS/NS 500 ML 30 UNITS/500 ML BAG 6 UNITS IV CONT (08:31)
[2020-07-20] MEDS: LACTATED RINGERS 1,000 ML 125 ML IV CONT ×2 (08:32→13:29)
--- NOTE | 2020-07-20 10:09 | WPDANESEPP ---
Anes - Eval Pre Procedure Procedure: labor epidural Date/Time: 07/20/20 10:09 Surgeon: Balaji Preop Diagnosis: Pain during labor Pre Op Diagnosis: induction Patient Data Age: 25 Gender: F Height: 5 ft 4 in Weight: 79.1 kg Last Vital Signs Temp 36.8 C 07/20/20 08:36 Pulse 94 07/20/20 10:00 BP 115/58 L 07/20/20 10:00 Allergies Allergy/AdvReac Type Severity Reaction Status Date / Time No Known Allergies Allergy Verified 08/18/19 09:44 Home Medications Medication Instructions Recorded Confirmed Type PNV cmb#95-ferrous fumarate-FA 1 tablet PO DAILY 05/19/20 07/17/20 History [] ferrous sulfate [Iron (ferrous 325 mg PO DAILY 07/09/20 07/17/20 History sulfate)] Laboratory Tests 07/20/20 07/20/20 07/20/20 07:46 07:46 07:46 WBC 9.2 K/mm3 K/mm3 (4.5-10.0) RBC 3.73 M/mm3 L M/mm3 (4.2-5.4) Hgb 9.9 g/dL L g/dL (12.0-15.0) Hct 31.0 % L % (37.0-47.0) MCV 83.1 fl fl (80-100) MCH 26.5 pg pg (26-34) MCHC 31.9 g/dl L g/dl (32-36) RDW 14.1 % % (11.5-14.5) Plt Count 250 k/mm3 k/mm3 (150-375) MPV 10.3 fl fl (7.4-10.4) Immature Gran % (Auto) 0.5 % % (0-0.5) Neut % (Auto) 66.1 % % (45.5-73.1) Lymph % (Auto) 23.1 % % (18.3-44.2) Benson % (Auto) 9.0 % H % (2.6-8.5) Eos % (Auto) 1.0 % % (0-4.4) Baso % (Auto) 0.3 % % (0.2-1.2) Lymph # (Auto) 2.11 K/mm3 K/mm3 (0.9-3.2) Benson # (Auto) 0.8 K/mm3 H K/mm3 (0.1-0.6) Eos # (Auto) 0.1 K/mm3 K/mm3 (0-0.3) Baso # (Auto) 0.0 K/mm3 K/mm3 (0.0-0.1) Abs Immat Gran (auto) 0.05 K/mm3 H K/mm3 (0.00-0.031) Absolute Neuts (auto) 6.1 K/mm3 K/mm3 (1.3-6.7) Absolute Nucleated RBC 0.0 K/mm3 K/mm3 (0.0-0.012) Nucleated RBC % 0.0 % % (0.0-0.2) RPR Pending Blood Type A Negative Antibody Screen Positive Antibody Identification Pending Antigen Identification Pending MARIA ESTHER, IgG Interpret Pending MARIA ESTHER, Poly Interpret Pending MARIA ESTHER, Complement Interp Pending : gestational age (HECTOR 07/27/20) Patient hx anesthesia problems: none Family hx anesthesia problems: none [facility] Past Medical History Medical History Anxiety Depression Family History Family History Sibling Asthma Social History Social History Smoking status: Never smoker Alcohol intake: current Substance use: never Gender identity (if verbalized by the patient): Female Spiritual care concerns: No Exam Day of Procedure 07/20/20 10:09 Patient weight: normal Heart: regular rate and rhythm Lungs: clear to auscultation and normal air movement Neurological: alert and oriented
[2020-07-20 10:52] LABS: Rapid Plasma Reagin Non-Reactive (NonReactive)
[2020-07-20] MEDS: fentaNYL CITRATE INJ (*CRX) 100 MCG/2 ML VIAL IV PUSH (12:22)
--- NOTE | 2020-07-20 12:25 | PM.OBPNLAB ---
Pain Control Date/time seen: 07/20/20 12:25 Pain control: tolerating well Pelvic Exam Dilation (cm): 4 (.5) Effacement (%): 70 station: -1 Amniotic membrane status: Ruptured (AROM, clear 1220) Contractions Monitor mode: External Contraction frequency: 3 Contraction pattern: Regular Status status: Category l Assessment and Plan Pitocin rate (mU/min): 28 Assessment: induction ongoing Plan: continuous present management Comments: anethesia consult PRN pain
--- NOTE | 2020-07-20 16:51 | P.PCNOB_ITS ---
OB - Delivery Note Procedure Delivery date: 07/20/20 events: Rh Incompatibility (s/p rhogam) Induction method: per pitocin protocol Delivery augmentation: rupture of membranes Delivery monitor: external FHT and external uterine Route of delivery: Laceration Description: Perineal - 2nd Degree Delivery repair: vicryl Specimen: No Quantitative Blood Loss (ml): 450 Anesthesia type: Epidural Disposition: floor [place] Baby Date of : 07/20/20 Time of : 16:18 Weeks of gestation at delivery: 39 Infant gender: Female Weight (pounds): 8 Weight (ounces): 14 presentation: vertex position: Left Occiput Anterior (compound, L hand presenting) Placenta delivery description: Expressed cord vessel description: 3 Vessels score one minute: 8 score five minutes: 9 Narrative: Kassy rapidly progressed to complete dilation with strong desire to push. With good maternal effort, she delivered the head in compound presentation with the left arm by the face without complications. She then delivered the shoulders and body without complications. The infant had spontaneous cry and was immediately placed skin to skin. Delayed cord clamping was performed. The cord was then clamped and cut. A segment of cord was collected for cord gases. The remaining cord blood was collected for typing. With Pitocin running and gentle downward traction on the placenta, the placenta delivered without complications. A large gush of blood was noted and bimanual exam revealed slight atony. With good bimanual massage the uterus became firm with minimal bleeding. The cervix, vagina, and perineum were examined and a second-degree perineal laceration was noted. The laceration was repaired in the normal fashion using 2 0 Vicryl. Minimal bleeding was noted and good uterine tone was noted. Sponge, lap, instrument, needle counts were correct at the end of the pr ocedure. Mom and baby were left bonding in the birthing suite in stable condition.
[2020-07-20] MEDS: OXYTOCIN 30 UNITS/NS 500 ML 30 UNITS/500 ML BAG 125 UNITS IV CONT (17:00)
--- NOTE | 2020-07-20 19:23 | OBPPTRN ---
Patient transferred to post room #281 via wheelchair. Support person present. Oriented to unit, room, information board, rooming in, admission packet and security measures. Patient verbalizes understanding.
[2020-07-20] MEDS: POLYSACCHARIDE IRON COMPLEX 150 MG CAPSULE PO (20:20)
[2020-07-20] MEDS: ACETAMINOPHEN 325 MG TABLET 650 MG PO (20:20)
[2020-07-20] MEDS: IBUPROFEN 600 MG TABLET PO (20:20)
[2020-07-20] MEDS: WITCH HAZEL 40 PADS 1 PAD TOPICAL (21:01)
[2020-07-20] MEDS: BENZOCAINE 20% AER SPR (*SP) 56 GM CAN 1 SPRAY TOPICAL (21:01)
[2020-07-21] VITALS (7 sets, daily range): BP systolic 100–110; BP diastolic 54–72; PULSE 79–100; RESP 16–20; TEMP 36.4–37.2; O2SAT 99–100
[2020-07-21] MEDS: HYDROcodone/acetaminophen (*CRX) 5-325 MG TABLET 1 TAB PO (00:08)
[2020-07-21] MEDS: IBUPROFEN 600 MG TABLET PO ×3 (02:36→16:55)
[2020-07-21 05:43] LABS: Hematocrit 23.7 % (37.0-47.0); Hemoglobin 7.4 g/dL (12.0-15.0)
--- NOTE | 2020-07-21 08:02 | PC.NURSE ---
Patient viewed the discharge video Mother & Baby Care, The First Two Weeks . Patient was given the opportunity and encouraged to ask questions. Patient verbalized understanding of information shared and has been given the mother/baby guide for home reference.
[2020-07-21] MEDS: MULTIVIT/MIN/PREN/FOL AC/IRON TABLET 1 TAB PO (08:25)
[2020-07-21] MEDS: DOCUSATE SODIUM 100 MG CAPSULE PO ×2 (08:25→16:55)
[2020-07-21] MEDS: POLYSACCHARIDE IRON COMPLEX 150 MG CAPSULE PO ×2 (08:25→16:55)
--- NOTE | 2020-07-21 09:37 | WPDANLDPN2 ---
Anes-Prog Note L&D Date/Time: 07/21/20 09:37 Comfortable throughout: labor and delivery Neuraxial method: epidural Epidural/Spinal procedure site: clean & non-tender Neuro status: Neuro function grossly intact. Cardiovascular status: normal Respiratory status: normal Airway patency: baseline Mental status: baseline Post-Op hydration status: normal Vital Signs: Last Vital Signs Temp 36.4 C 07/21/20 07:50 Pulse 79 07/21/20 07:50 Resp 16 07/21/20 07:50 BP 109/72 07/21/20 07:50 Pulse Ox 100 07/21/20 07:50 Pain score (VAS): 0 I/O: Intake & Output 07/20/20 07/21/20 07/21/20 23:59 07:59 15:59 Intake Total 1000 Output Total 375 Balance 625 Post-procedural complaints: none Patient feedback: Patient satisfied with anesthetic care.
--- NOTE | 2020-07-21 12:10 | PM.OBPNVD ---
OB - PN: Subj Subjective Date/time seen: 07/21/20 11:36 PPD #1 Kassy reports doing well today. She reports her pain is controlled w/ the meds. 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 She has tolerated regular diet. She has voided and passed gas. She has ambulated around her room w/o issue. She is breast feeding. She denies CP, SOB, HERZOG, vision changes, N/V, fever, chills, palpitations or dizziness. OB - PN: Obj Data Labs CBC & Chem 7: 07/21/20 04:22 Labs: Laboratory Results - last 24 hr 07/21/20 07/21/20 04:22 04:22 Hgb 7.4 L Hct 23.7 L Blood Type A Negative Antibody Screen TNP Screen Negative Baby's Blood Type A pos Baby's MARIA ESTHER Negative Doses of RhIg Required 1 OB - PN A/P Assessment and Plan (1) Status post normal vaginal delivery: Status: Acute (2) Rh negative status during : Qualifiers: Trimester: third trimester Qualified Code(s): O26.893 - Other specified related conditions, third trimester; Z67.91 - Unspecified blood type, Rh negative Code(s): O26.899 - Other specified related conditions, unspecified trimester; Z67.91 - Unspecified blood type, Rh negative Status: Acute (3) Anemia: Qualifiers: Anemia type: other cause Other causes of anemia: acute posthemorrhagic Qualified Code(s): D62 - Acute posthemorrhagic anemia Code(s): D64.9 - Anemia, unspecified Status: Acute Plan day: 1 Plan: routine care and discharge home Comments: - iron BID; stay hydrated - Pelvic rest; take meds as prescribed - f/u in 4wks in clinic - ER return precautions: fever, bleeding, N/V/abd pain, HTN Time Spent With Patient Time: Total time spent is greater than 50% in coordination of care (as documented) at patient's floor/unit and/or counseling patient: Review of Systems Review of Systems: All systems reviewed & are unremarkable except as noted in HPI and below (HPI) Exam Const: General: cooperative, healthy appearing, comfortable, no acute distress and well developed Resp: Effort & Inspection: normal respiratory effort and able to speak in complete sentences Auscultation: clear to auscultation bilaterally Cardio: Rate: regular rate GI: Inspection: normal to inspection and non-distended GI Palp: No abdominal tenderness and Yes Soft to palpation Auscultation: normal bowel sounds : Other: fundus firm below umbilicus Skin: General skin exam: normal color Neuro: General: patient oriented x3 Extrem: General: normal to inspection Psych: Appearance: grossly normal Affect: normal affect Attitude: cooperative
[2020-07-21] MEDS: RHO(D) IMMUNE GLOBULIN 300 MCG/2 ML SYRINGE IM (17:17)
[2020-07-23 11:46] VITALS: BP 118/72; PULSE 95; RESP 20; TEMP 36.9; O2SAT 100
--- NOTE | 2020-07-25 06:31 | PM.OBDSVD ---
DS: Admitting Diagnosis Admitting Diagnosis Admitting Diagnosis: elective induction of labor DS: Discharge Diagnosis Discharge Diagnosis (1) Status post normal vaginal delivery: Status: Acute (2) Rh negative status during : Qualifiers: Trimester: third trimester Qualified Code(s): O26.893 - Other specified related conditions, third trimester; Z67.91 - Unspecified blood type, Rh negative Code(s): O26.899 - Other specified related conditions, unspecified trimester; Z67.91 - Unspecified blood type, Rh negative Status: Acute OB - DS: Summary OB Procedures : Ultrasound OB Procedures Intrapartum: Spontaneous Vag Delivery OB Procedures: : RHo (D) lg Peripartum Data Infant Delivery Method: Natural Vaginal Laceration Description: Perineal - 2nd Degree complications: none [place] 1: Gender: Female Disposition of : home Status at Discharge Functional status at discharge: independent ambulation Overall status at discharge: patient is back to baseline Time Spent with Patient Time attestation: Total time spent providing and/or coordinating discharge services: Time spent: Less than 30 minutes Exam Const: General: cooperative, healthy appearing, comfortable, no acute distress and well developed Resp: Effort & Inspection: normal respiratory effort and able to speak in complete sentences Cardio: Rate: regular rate GI: Inspection: non-distended GI Palp: No abdominal tenderness and Yes Soft to palpation Auscultation: normal bowel sounds : Other: fundus firm below umbilicus Skin: General skin exam: normal color Neuro: General: patient oriented x3 Extrem: General: normal to inspection Psych: Appearance: grossly normal Affect: normal affect Attitude: cooperative Discharge Plan Discharge Attending physician on discharge: Kyung Harrison Discharging Clinician: Kyung Harrison Anticipated Discharge Date/Time: 07/21/20 20:00 Patient Disposition: Home, Self-Care Activity: may shower and pelvic rest Diet: as tolerated and regular Discharge Instructions: Education: Mom and Baby Guide Given to: Mother Follow-Up: Call your delivering provider's office for an appointment to be seen in: 4 Weeks Mom and baby should come to the [facility] for the follow-up appointment. Appointment Date/Time: July 23, 2020 at 11:00 am What to expect at your follow-up visit: Blood Pressure Check Physical Assessment Call [phone] if you are unable to keep your appointment time. BREAST CARE: * Wear a snug supportive bra. * For engorgement discomfort: Breast Feeding: * Apply warm moist washcloths * Express milk as needed to relieve engorgement * Wear loose clothing Bottle Feeding: * May apply ice packs * For sore nipples: * Identify correct latch-on * Apply warm moist washcloths before and after nursing * Air dry nipples after nursing * May apply Lansinoh cream to nipples EPISIOTOMY/PERINEAL CARE: * Until bleeding stops, use your ortiz bottle after urinating * Change your pad frequently throughout the day * You may take sitz baths several times a day (fill your bathtub with warm water and soak for 20 minutes.) Do NOT bathe in the water * No tub baths until seen by your physician - You may shower ACTIVITY: * Rest as much as possible. * Do not exercise or lift anything heavier than your baby (such as laundry or other children.) * Avoid stairs or driving as much as possible. * Do not put anything into the vagina. No douching, tampons, or sexual activity until seen by physician. NOTIFY PHYSICIAN IF YOU HAVE ANY QUESTIONS OR IF ANY OF THE FOLLOWING SYMPTOMS OCCUR: * If your episiotomy or incision becomes red, swollen, or more painful than what you have experienced in the hospital. * If your vagina
== END 2020-07-21 20:06 | disposition home or self-care (01) | DRG 806 ==
LOC: ANHOB2 07-21 12:13 → ANHLDR 07-22 13:31 → ANHOB2 07-22 13:31
PROVIDERS: Admitting Provider Obstetrics & Gynecology; Visit Provider Obstetrics & Gynecology
DX: O99.02 Anemia complicating childbirth (principal); O36.0930 Maternal care for other rhesus isoimmunization, third trimester, not applicable or unspecified; Z37.0 Single live birth; D62 Acute posthemorrhagic anemia; O72.1 Other immediate postpartum hemorrhage; O90.81 Anemia of the puerperium; Z3A.39 39 weeks gestation of pregnancy; O70.1 Second degree perineal laceration during delivery; D50.9 Iron deficiency anemia, unspecified; O99.344 Other mental disorders complicating childbirth; F41.9 Anxiety disorder, unspecified; F32.9 Major depressive disorder, single episode, unspecified; O32.6XX0 Maternal care for compound presentation, not applicable or unspecified
CPT/HCPCS: 36415; 85014; 85018; 85025; 85461; 86592; 86850; 86880; 86900; 86901; 86902; 90384; A9270; J2590; J2790; J2795; J3010; J7120

== ENCOUNTER 2021-03-02 16:44 | Outpatient (CLI) | payer BC, SELFPAY | END 2021-03-02 16:45 | disposition home or self-care (01) | LOC: ANHLAB 16:45 | PROVIDERS: Visit Provider Obstetrics & Gynecology | DX: O02.1 Missed abortion (principal); Z3A.00 Weeks of gestation of pregnancy not specified | CPT/HCPCS: 36415; 85461 ==

== ENCOUNTER 2021-03-10 13:40 | Outpatient (RCR) | payer BC, SELFPAY ==
[2021-03-10] MEDS: RHO(D) IMMUNE GLOBULIN 300 MCG/2 ML SYRINGE IM (12:14)
== END 2021-03-10 13:41 | disposition home or self-care (01) ==
LOC: ANHLAB 13:40
PROVIDERS: PCP Obstetrics & Gynecology; Visit Provider Obstetrics & Gynecology
DX: Z29.13 Encounter for prophylactic Rho(D) immune globulin (principal); O36.0190 Maternal care for anti-D [Rh] antibodies, unspecified trimester, not applicable or unspecified; O02.1 Missed abortion; Z3A.00 Weeks of gestation of pregnancy not specified
CPT/HCPCS: 36415; 85461; 90384; 96372; J2790

== ENCOUNTER 2021-03-11 15:18 | Emergency (ER) | payer BC, SELFPAY ==
[2021-03-11 15:26] VITALS: BP 138/74; PULSE 99; RESP 17; TEMP 36.4; O2SAT 100
--- NOTE | 2021-03-11 19:49 | ED.PREGNANCY ---
HPI - General Chief complaint: Vaginal Bleeding <Stella Turner PA-C - Last Filed: 03/11/21 21:52> Stated complaint: Vaginal Bleeding, 7 weeks <Stella Turner PA-C - Last Filed: 03/11/21 21:52> Time Seen by Provider: 03/11/21 19:27 <Stella Turner PA-C - Last Filed: 03/11/21 21:52> Source: patient <Stella Turner PA-C - Last Filed: 03/11/21 21:52> Mode of arrival: ambulatory <Stella Turner PA-C - Last Filed: 03/11/21 21:52> Limitations: no limitations <Stella Turner PA-C - Last Filed: 03/11/21 21:52> History of Present Illness HPI Narrative: This is a 25 year old , about 7 weeks , that presents to the ER for vaginal bleeding. Reports she was having bleeding last week. She did have an US at that time that showed an intrauterine . The bleeding had stopped. It started back up again today. She notes dark red blood with some clots. She reports some pelvic cramping. She does report she had RhoGam at her OBs office this week. Denies fever, or dysuria. <Stella Turner PA-C - Last Filed: 03/11/21 21:52> Related Data Allergies/Adverse reactions: Allergies Allergy/AdvReac Type Severity Reaction Status Date / Time No Known Allergies Allergy Verified 08/18/19 09:44 <Stella Turner PA-C - Last Filed: 03/11/21 21:52> Review of Systems Review of Systems: CONSTITUTIONAL: Denies fever GASTROINTESTINAL: Reports pelvic cramping GENITOURINARY: Denies dysuria <Stella Turner PA-C - Last Filed: 03/11/21 21:52> All systems reviewed & are unremarkable except as noted in HPI and below <Stella Turner PA-C - Last Filed: 03/11/21 21:52> [facility] Past Medical History Medical History: Medical History (Updated 03/11/21 @ 21:51 by Stella Turner PA-C) Anxiety Depression <Stella Turner PA-C - Last Filed: 03/11/21 21:52> Family History Family History: Family History Sibling Asthma <Stella Turner PA-C - Last Filed: 03/11/21 21:52> Social History Social History: Social History Smoking status: Never smoker Alcohol intake: current Substance use: never Gender identity (if verbalized by the patient): Female Spiritual care concerns: No <Stella Turner PA-C - Last Filed: 03/11/21 21:52> Exam Narrative: GENERAL: Well-appearing, well-nourished, and in no acute distress. HEAD: Normocephalic, atraumatic. EYES: EOMI. CHEST: Clear to auscultation. No respiratory distress. No wheezes rales or rhonchi HEART: Regular rate and rhythm. No murmur heard. Normal peripheral pulses. ABDOMEN: Soft, nontender, nondistended, normal active bowel sounds. EXTREMITIES: Normal range of motion. No edema. SKIN: Warm, dry, no rash. NEURO: No focal deficits. Alert and oriented x3. PSYCH: Normal mood and affect PELVIC: Small amount of dark blood in the vaginal vault. Cervix closed <Stella Turner PA-C - Last Filed: 03/11/21 21:52> Course MANAGER OF SUSTAINABILITY/PA Physician Supervision For this patient encounter, I reviewed the MANAGER OF SUSTAINABILITY or PA documentation, treatment plan, and medical decision making <Noah Kahn MD - Last Filed: 03/11/21 23:06> Consultations Consultation #1: Spoke with Dr. Carpio about patient and workup. Patient is to follow-up at her scheduled ultrasound on Saturday. <Stella Turner PA-C - Last Filed: 03/11/21 21:52> Date: 03/11/21 <Stella Turner PA-C - Last Filed: 03/11/21 21:52> Time: 21:40 <Stella Turner PA-C - Last Filed: 03/11/21 21:52> Vital Signs Vital signs: Vital Signs Temperature 97.5 F L 03/11/21 15:26 Pulse Rate 99 03/11/21 15:26 Respiratory Rate 17 03/11/21 15:26 Blood Pressure 138/74 03/11/21 15:26 Pulse Oximetry 100 03/11/21 15:26 Temperature 97.5 F L 03/11/21 15:26 Pulse Rate 99 03/11/21 15:26 Respiratory Rate 17 12
[2021-03-11 20:14] LABS: Basophils Percent Auto 0.3 % (0.2-1.2); Eosinophils Absolute Auto 0.1 K/mm3 (0-0.3); Eosinophils Percent Auto 1.2 % (0-4.4); Hematocrit 34.3 % (37.0-47.0); Hemoglobin 11.8 g/dL (12.0-15.0); Immature Granulocyte Absolute 0.03 K/mm3 (0.00-0.031); Immature Granulocyte Percent A 0.3 % (0-0.5); Lymphocytes Absolute Auto 2.89 K/mm3 (0.9-3.2); Lymphocytes Percent Auto 31.5 % (18.3-44.2); Mean Corpuscular HGB Conc 34.4 g/dl (32-36); Mean Corpuscular Hemoglobin 29.6 pg (26-34); Monocytes Absolute Auto 0.7 K/mm3 (0.1-0.6); Monocytes Percent Auto 7.5 % (2.6-8.5); Neutrophils Absolute Auto 5.4 K/mm3 (1.3-6.7); Neutrophils Percent Auto 59.2 % (45.5-73.1); Platelet Count Result 302 k/mm3 (150-375); Red Blood Count 3.99 M/mm3 (4.2-5.4); Red Cell Distribution Width 12.8 % (11.5-14.5); White Blood Count 9.2 K/mm3 (4.5-10.0)
[2021-03-11 20:23] LABS: Alanine Aminotransferase 18 U/L (4-35); Albumin Level 4.1 g/dL (3.5-5.1); Alkaline Phosphatase 51 U/L (38-126); Anion Gap 8 mmol/L (8-16); Aspartate Amino Transferase 21 U/L (14-36); Bilirubin,Total 0.2 mg/dL (0.2-1.3); Blood Urea Nitrogen 8 mg/dL (7-17); Calcium 8.8 mg/dL (8.4-10.2); Carbon Dioxide 21 mmol/L (22-30); Chloride 104 mmol/L (98-107); Estimated Glomerular Filt Rate > 60; Glucose 104 mg/dL (65-110); Potassium 3.5 mmol/L (3.4-5.0); Sodium 133 mmol/L (137-145)
[2021-03-11 20:24] LABS: INR 0.9; Partial Thromboplastin Time 26.4 SECONDS (22.3-36.8); Prothrombin Time 12.1 Seconds (11.1-14.7)
[2021-03-11 21:01] LABS: Add Urine Microscopic? YES; Appearance Urine Cloudy (Clear); Bacteria Urine Trace /hpf; Bilirubin Urine Negative (Negative); Blood Urine 3+ (Negative); Color Urine Yellow (Yellow); Glucose Urine UA Negative (Negative); Ketones Urine Negative (Negative); Leukocyte Esterase Ur Negative LEU/UL (Negative); Mucus Urine Few /lpf; Nitrate Urine Negative (Negative); Protein Urine Negative (Negative); Specific Grav Ur 1.018 (1.001-1.035); Squamous Epithelial Cell Urine Many /hpf (Few); Urobilinogen Urine Negative mg/dL (<2.0)
== END 2021-03-11 22:12 | disposition home or self-care (01) ==
PROVIDERS: Physician Assistant; Emergency Provider Emergency Medicine; PCP Obstetrics & Gynecology
DX: O46.91 Antepartum hemorrhage, unspecified, first trimester (principal); Z3A.01 Less than 8 weeks gestation of pregnancy
CPT/HCPCS: 36415; 80053; 81001; 84702; 85025; 85610; 85730; 87086; 87088; 99284

== ENCOUNTER 2021-04-03 15:19 | Outpatient (CLI) | payer BC, SELFPAY ==
--- NOTE | ~2021-04-03 | US_ITS ---
EXAMINATION: US OB <= 14 weeks fetus DATE: 04/03/2021 15:50 INDICATION: Subchorionic hematoma. TECHNIQUE: Real-time transabdominal pelvic ultrasound was performed. COMPARISON: Ultrasound 07/06/2020 FINDINGS: The uterus measures 11.2 x 9.4 x 9.8 cm. There is an intrauterine gestational sac. The crown ru mp length measures 5.5 cm, which correlates with an estimated gestational age of 12 weeks and 0 day(s ) (+/-) 1 week(s) and 1 day(s). heart motion is identified measuring 161 beats per minute (bpm) by M-mode Doppler. There is a 1.0 x 0.7 x 0.8 cm subchorionic hematoma. The right ovary measures 5.0 x 2.9 x 2.7 cm. The left ovary is not well visualized. There is no free fluid in the pelvis. IMPRESSION: 1. Single living intrauterine gestation with estimated date of delivery of 10/16/2021 based on this u ltrasound. 2. Small subchorionic hematoma. Reviewed, dictated and finalized at location B. K TOTALER IMPRESSION: 1. Single living intrauterine gestation with estimated date of delivery of 09/23 based on this ultrasound. 2. Small subchorionic hematoma.
== END 2021-04-03 15:20 | disposition home or self-care (01) ==
LOC: ANHIMG 15:22
PROVIDERS: PCP Obstetrics & Gynecology; Visit Provider Obstetrics & Gynecology
DX: O41.8X99 Other specified disorders of amniotic fluid and membranes, unspecified trimester, other fetus (principal); Z3A.00 Weeks of gestation of pregnancy not specified
CPT/HCPCS: 76801

== ENCOUNTER 2021-05-09 12:28 | Outpatient (CLI) | payer BC, SELFPAY ==
--- NOTE | ~2021-05-09 | US_ITS ---
EXAMINATION: US OB limited DATE: 05/09/2021 14:22 INDICATION: Spotting during second trimester TECHNIQUE: Real-time ultrasound of the pelvis was performed. The interpreting radiologist was not pre sent for the study. COMPARISON: None. FINDINGS: There is a single living fetus in vertex presentation. The placenta is posterior. car diac activity and movement are noted. heart rate is 151 beats per minute (bpm). The amnio tic fluid index is subjectively normal. There is a small amount of mobile debris in the amniotic flui d. IMPRESSION: 1. Single living fetus in vertex presentation. 2. Small amount of mobile debris in the amniotic fluid. Reviewed, dictated and finalized at location A. E NURSE
== END 2021-05-09 12:29 | disposition home or self-care (01) ==
LOC: ANHIMG 12:30
PROVIDERS: PCP Obstetrics & Gynecology; Visit Provider Obstetrics & Gynecology
DX: O26.852 Spotting complicating pregnancy, second trimester (principal); Z3A.00 Weeks of gestation of pregnancy not specified
CPT/HCPCS: 76815

== ENCOUNTER 2021-08-15 15:56 | Outpatient (RCR) | payer OTHER, SELFPAY ==
[2021-08-12 13:12] LABS: Basophils Percent Auto 0.2 % (0.2-1.2); Eosinophils Absolute Auto 0.2 K/mm3 (0-0.3); Eosinophils Percent Auto 2.3 % (0-4.4); Hematocrit 30.5 % (37.0-47.0); Immature Granulocyte Absolute 0.06 K/mm3 (0.00-0.031); Immature Granulocyte Percent A 0.7 % (0-0.5); Lymphocytes Absolute Auto 1.93 K/mm3 (0.9-3.2); Mean Corpuscular HGB Conc 32.8 g/dl (32-36); Mean Corpuscular Hemoglobin 28.2 pg (26-34); Mean Corpuscular Volume 86.2 fl (80-100); Mean Platelet Volume 10.2 fl (7.4-10.4); Monocytes Absolute Auto 0.8 K/mm3 (0.1-0.6); Monocytes Percent Auto 8.9 % (2.6-8.5); Neutrophils Absolute Auto 5.8 K/mm3 (1.3-6.7); Neutrophils Percent Auto 65.9 % (45.5-73.1); Platelet Count Result 268 k/mm3 (150-375); Red Blood Count 3.54 M/mm3 (4.2-5.4); Red Cell Distribution Width 12.3 % (11.5-14.5); White Blood Count 8.8 K/mm3 (4.5-10.0)
[2021-08-12 14:02] LABS: HIV 1/2 Ab P24 Ag Result Negative (Negative)
[2021-08-15] MEDS: RHO(D) IMMUNE GLOBULIN 300 MCG/2 ML SYRINGE IM (11:44)
== END 2021-11-10 23:59 | disposition home or self-care (01) ==
LOC: ANHLAB 15:56
PROVIDERS: PCP Obstetrics & Gynecology; Visit Provider Obstetrics & Gynecology
DX: Z11.4 Encounter for screening for human immunodeficiency virus [HIV] (principal); Z29.13 Encounter for prophylactic Rho(D) immune globulin; O36.0190 Maternal care for anti-D [Rh] antibodies, unspecified trimester, not applicable or unspecified; Z3A.00 Weeks of gestation of pregnancy not specified
CPT/HCPCS: 36415; 85025; 85461; 86703; 90384; 96372; G0432; J2790

== ENCOUNTER 2021-08-31 11:07 | Observation (INO) | payer OTHER, SELFPAY ==
[2021-08-31] VITALS (10 sets, daily range): BP systolic 87–106; BP diastolic 47–68; PULSE 79–100; BMI 32.8
--- NOTE | 2021-08-31 12:19 | OBADM ---
This patient, Kassy Brooke, admitted to the OB room OB Post 113 for observation. Patient/family oriented to hospital policies and general routines including ID bracelet, bed and alarms, visiting hours, pain management, procedures, bathroom and other care routines, personal items, smoking policy, room service/diet, and visiting hours. Patient/Family are encouraged to report perceived risks to care and to ask questions if they do not understand what they are told or what they should do.
[2021-08-31 13:23] LABS: Appearance Urine Slightly Cloudy (Clear); Bilirubin Urine Negative (Negative); Blood Urine Negative (Negative); Glucose Urine UA Negative (Negative); Ketones Urine Negative (Negative); Leukocyte Esterase Ur 1+ LEU/UL (Negative); Nitrate Urine Negative (Negative); Protein Urine Negative (Negative); Specific Grav Ur 1.015 (1.001-1.035); Urobilinogen Urine 0.2 mg/dL (<2.0)
[2021-08-31 13:37] LABS: Bacteria Urine 1+ /hpf; RBC Urine 0-2 /hpf (0-2); Squamous Epithelial Cell Urine Many /hpf (Few); WBC Urine 0-3 /hpf
[2021-08-31 13:50] LABS: Add Urine Microscopic? YES; Color Urine Light Yellow (Yellow)
--- NOTE | 2021-09-03 17:35 | PM.OBTRLD ---
OB - Triage/Final Diagnosis Visit Information Comments/Additional reasons for admission: I have assessed the risk for this patient, Kassy Brooke, and determined that she would benefit from observation care. Evaluation Laboratory results: Laboratory Tests 08/31/21 12:40 Urine Color Light yellow Urine Appearance Slightly cloudy Urine pH 7.0 Ur Specific [place] 1.015 Urine Protein Negative Urine Glucose (UA) Negative Urine Ketones Negative Ur Blood (Man) Negative Urine Nitrate Negative Urine Bilirubin Negative Urine Urobilinogen 0.2 Leukocyte Esterase Rfl 1+ H Urine RBC 0-2 Urine WBC 0-3 Ur Squamous Epith Cells Many H Urine Bacteria 1+ H Final Diagnosis (1) Abdominal pain affecting : Code(s): O26.899 - Other specified related conditions, unspecified trimester; R10.9 - Unspecified abdominal pain Status: Acute
== END 2021-08-31 14:27 | disposition home or self-care (01) ==
PROVIDERS: Admitting Provider Obstetrics & Gynecology; PCP Obstetrics & Gynecology; Visit Provider Obstetrics & Gynecology
DX: O26.899 Other specified pregnancy related conditions, unspecified trimester (principal); R10.9 Unspecified abdominal pain; Z3A.00 Weeks of gestation of pregnancy not specified
CPT/HCPCS: 81001; G0378; G0379

== ENCOUNTER 2021-09-08 10:41 | Observation (INO) | payer OTHER, SELFPAY ==
--- NOTE | 2021-09-08 11:05 | OBADM ---
This patient, Kassy Brooke, admitted to the OB room OB Post 112 for observation. Patient/family oriented to hospital policies and general routines including ID bracelet, bed and alarms, visiting hours, pain management, procedures, bathroom and other care routines, personal items, smoking policy, room service/diet, and visiting hours. Patient/Family are encouraged to report perceived risks to care and to ask questions if they do not understand what they are told or what they should do.
--- NOTE | 2021-09-08 11:05 | PC.NURSE ---
States lightening type pain in cervix area. Crampy type aching in low backpast two day. Cramping in low back since last night. States felt contractions yesterday.
--- NOTE | 2021-09-08 11:07 | PC.NURSE ---
Dr. Harrison on unit and to room to evaluate Pt. SVE done per Dr. Harrison.
[2021-09-08 11:12] VITALS: BP 107/59; PULSE 99
[2021-09-08 11:31] VITALS: BP 106/60; PULSE 91
[2021-09-08 12:01] VITALS: BP 108/57; PULSE 92
[2021-09-08 13:19] VITALS: BP 107/59; PULSE 110
--- NOTE | 2021-09-08 13:26 | PC.NURSE ---
1245 Patient ate lunch. No further complaints at this time. Reviewed plan to rest over weekend and start to work every other day until delivery per Dr. Harrison.
--- NOTE | 2021-09-12 07:16 | PM.OBTRLD ---
OB - Triage/Final Diagnosis Visit Information Comments/Additional reasons for admission: I have assessed the risk for this patient, Kassy Brooke, and determined that she would benefit from observation care. Final Diagnosis (1) Abdominal pain affecting : Code(s): O26.899 - Other specified related conditions, unspecified trimester; R10.9 - Unspecified abdominal pain Status: Acute
== END 2021-09-08 12:45 | disposition home or self-care (01) ==
PROVIDERS: Admitting Provider Obstetrics & Gynecology; PCP Obstetrics & Gynecology; Visit Provider Obstetrics & Gynecology
DX: O26.899 Other specified pregnancy related conditions, unspecified trimester (principal); R10.9 Unspecified abdominal pain; Z3A.00 Weeks of gestation of pregnancy not specified
CPT/HCPCS: 59025; G0378; G0379

== ENCOUNTER 2021-09-12 17:50 | Outpatient (RCR) | payer OTHER, SELFPAY ==
[2021-09-11] MEDS: BETAMETHASONE SOD PHOS/ACETATE 30 MG/5 ML VIAL 12 MG IM (17:48)
[2021-09-12] MEDS: BETAMETHASONE SOD PHOS/ACETATE 30 MG/5 ML VIAL 12 MG IM (18:13)
== END 2021-10-03 09:17 | disposition home or self-care (01) ==
LOC: ANHOBOP 17:50
PROVIDERS: PCP Obstetrics & Gynecology; Visit Provider Obstetrics & Gynecology
DX: O36.8930 Maternal care for other specified fetal problems, third trimester, not applicable or unspecified (principal); Z3A.00 Weeks of gestation of pregnancy not specified
CPT/HCPCS: 96372; J0702

== ENCOUNTER 2021-09-26 15:31 | Observation (INO) | payer OTHER, SELFPAY ==
--- NOTE | 2021-09-26 15:31 | OBADM ---
This patient, Kassy Brooke, admitted to the OB room Labor/Delivery/Recovery 103 for observation. Patient/family oriented to hospital policies and general routines including ID bracelet, bed and alarms, visiting hours, pain management, procedures, bathroom and other care routines, personal items, smoking policy, room service/diet, and visiting hours. Patient/Family are encouraged to report perceived risks to care and to ask questions if they do not understand what they are told or what they should do.
[2021-09-26 15:45] VITALS: BMI 34.9
--- NOTE | 2021-09-26 16:05 | PC.NURSE ---
Called Dr. Harrison with pt admission. Informed of possible decelerations seen on monitor. Tracing reviewed in office. Continue to monitor. Informed that pt states that she was sick all weekend and too weak to do anything. Her and daughter are both sick. Pt appears to be congested. Orders received.
[2021-09-26 16:30] VITALS: BP 106/65; PULSE 87
[2021-09-26 16:45] VITALS: BP 112/58; PULSE 108
[2021-09-26 16:58] LABS: EDCOVIDSCREEN Positive (Negative)
[2021-09-26 17:00] VITALS: BP 105/60; PULSE 98
--- NOTE | 2021-09-26 17:02 | PC.NURSE ---
Called Dr. Harrison with COVID results. Tracing improved and now reactive. Orders received to return for NST, BPP and JUAN on .
[2021-09-26 17:15] VITALS: BP 106/56; PULSE 98
--- NOTE | 2021-09-28 14:53 | PM.OBTRLD ---
OB - Triage/Final Diagnosis Visit Information Comments/Additional reasons for admission: I have assessed the risk for this patient, Kassy Brooke, and determined that she would benefit from observation care. Evaluation Laboratory results: Laboratory Tests 09/26/21 16:39 SARS-CoV-2 IgG/IgM Ag?Rapid Positive Final Diagnosis (1) COVID-19 virus infection: Code(s): U07.1 - COVID-19 Status: Acute
== END 2021-09-26 17:35 | disposition home or self-care (01) ==
PROVIDERS: Admitting Provider Obstetrics & Gynecology; Visit Provider Obstetrics & Gynecology
DX: O98.513 Other viral diseases complicating pregnancy, third trimester (principal); U07.1 COVID-19; Z3A.37 37 weeks gestation of pregnancy
CPT/HCPCS: 36415; 87426; C9803; G0378; G0379

== ENCOUNTER 2021-09-28 07:41 | Outpatient (RCR) | payer OTHER, SELFPAY ==
[2021-09-11 17:52] VITALS: BP 108/65; PULSE 100
[2021-09-18 17:29] VITALS: BP 102/60; PULSE 109
--- NOTE | 2021-09-18 18:38 | PC.NURSE ---
183 Dr. Harrison notified of pt BPP and JUAN. Instructed to send patient home.
--- NOTE | ~2021-09-28 | US_ITS ---
EXAMINATION: US OB limited w BPP DATE: 09/28/2021 09:25 CDT INDICATION: Covid positive. Evaluate amniotic fluid. TECHNIQUE: Real-time transabdominal obstetric ultrasound. FINDINGS: Ultrasound dated 09/18/2021 There is a single living fetus in vertex presentation. The placenta is anterior without placenta pre via. Amniotic fluid index is normal measuring 12.7 cm. cardiac activity and movement is noted with a heart rate of 134 beats per minute. Biophysical profile: breathin of 2 movement: 2 of 2 tone: 2 of 2 Amniotic flud pocket: 2 of 2 Total score: 8 of 8 IMPRESSION: 1. Single living intrauterine in vertex presentation. 2: Total biophysical profile score of 8/8. 3: Normal JUAN measures 12.7 cm Reviewed, dictated and finalized at location A.
--- NOTE | ~2021-09-28 | US_ITS ---
EXAMINATION: US OB limited w BPP DATE: 09/18/2021 18:21 INDICATION: Evaluate biophysical profile and amniotic fluid index. TECHNIQUE: Real-time ultrasound of the pelvis was performed. COMPARISON: 05/29/2021. FINDINGS: There is a single living fetus in vertex presentation, longitudinal lie. The placenta is anterior. F etal heart rate is 157 beats per minute (bpm). The amniotic fluid index is 8.7 cm, which is low-carline l.] Biophysical profile performed by the technologist: breathing (30 sec sustained breathing in 30 minutes): 2 out of 2 movement (3 gross body movements in 30 minutes: 2 out of 2 tone (one episode of khzytnm-ekezbfpww-pejjvfw limb movement): 2 out of 2 Amniotic fluid pocket (2 cm): 2 out of 2 Total score: 8 out of 8 IMPRESSION: 1. Single living fetus in vertex presentation.] 2. Low normal amniotic fluid index of 8.7 cm. 3. Biophysical profile 8 out of 8. Reviewed, dictated and finalized at location K.
[2021-09-28 09:30] VITALS: BP 108/68
== END 2021-11-03 14:54 | disposition home or self-care (01) ==
LOC: ANHOBOP 07:41
PROVIDERS: PCP Obstetrics & Gynecology; Visit Provider Obstetrics & Gynecology
DX: O36.8130 Decreased fetal movements, third trimester, not applicable or unspecified (principal); Z3A.35 35 weeks gestation of pregnancy
CPT/HCPCS: 59025; 76815; 76819

== ENCOUNTER 2021-09-30 22:03 | Observation (INO) | payer OTHER, SELFPAY ==
[2021-09-30 22:03] VITALS: BMI 33.5
== END 2021-10-01 02:04 | disposition home or self-care (01) ==
PROVIDERS: Admitting Provider Obstetrics & Gynecology; Visit Provider Obstetrics & Gynecology
DX: O47.1 False labor at or after 37 completed weeks of gestation (principal); Z3A.37 37 weeks gestation of pregnancy
CPT/HCPCS: G0378; G0379

== ENCOUNTER 2021-10-04 18:30 | Inpatient (IN) | payer OTHER, SELFPAY ==
[2021-10-04] VITALS (51 sets, daily range): BP systolic 91–194; BP diastolic 36–128; PULSE 91–126; RESP 20; TEMP 37.3–37.4; O2SAT 99–100; BMI 33.6
--- OUTSIDE RECORDS SUMMARY | 2021-10-04 19:19 | XMS_ITS ---
:1995 Author Care Team Providers Name Role Phone Bubba Carpio Primary Care Provider Unavailable Allergies Code Code System Name Reaction Severity Status Onset NKDA ? Medications Name Status Start Date Stop Date ? ? acetaminophen 300 mg-codeine 30 mg tablet Completed ? 04/21/2019 TK 1 T PO Q 4 TO 6 H PRN P acetaminophen 325 mg tablet Completed ? 07/23 Afluria Qd 2018- (36 mos up)(PF)60 mcg (15 mcg x4)/0.5 mL IM s yringe Active ? Not available ADM 0.5ML IM UTD amoxicillin 875 mg tablet Active ? Not av ailable TK 1 T PO Q 12 H Ciprodex 0.3 %-0.1 % ear drops,suspension Active ? Not available INSTILL 4 DROPS INTO LEFT EAR Q 12 H FOR 7 DAYS docusate sodium 100 mg capsule Active ? N ot available TAKE 1 CAPSULE BY MOUTH TWICE DAILY NEEDED FOR CONSTIPATION Estarylla 0.25 mg-35 mcg tablet Active ? Not available TK 1 T PO QD FeroSul 325 mg (65 mg iron) tablet Active ? Not available TAKE 1 TABLET BY MOUTH TWICE DAILY WITH MEALS ferrous fumarate 324 mg (106 mg iron) tablet Completed ? 04/21/2019 TK 1 T PO D hydrocodone 5 mg-acetaminophen 325 mg tablet Completed ? 04/21/2019 TK 1 T PO Q 4 H PRN P ibuprofen 600 mg tablet Active ? Not avai lable TAKE 1 TABLET BY MOUTH EVERY 6 HOURS FOR 10 DAYS NEEDED FOR CRAMPING ibuprofen 800 mg tablet Active ? Not avai lable TK 1 T PO Q 8 H misoprostol 200 mcg tablet Active ? Not a vailable TK 2 TS PO THE NIGHT PRIOR TO PROCEDURE naproxen 500 mg tablet Completed ? 0
--- OUTSIDE RECORDS SUMMARY | 2021-10-04 19:19 | XMS_ITS ---
:1995 Author Care Team Providers Name Role Phone DALLAS FOSTER Primary Care Provider [phone] Allergies Code Code System Name Reaction Severity [...] VAGINALLY DIRECTED FOR 3 WEEKS AND REMOVE FOR ONE WEEK oxycodone-acetaminophen 5 mg-325 mg tablet Completed ? 10/14/2019
[2021-10-04] MEDS: LACTATED RINGERS 1,000 ML 125 ML IV CONT ×2 (20:24→21:23)
[2021-10-04] MEDS: fentaNYL CITRATE INJ (*CRX) 100 MCG/2 ML VIAL 50 MCG IV PUSH (20:26)
[2021-10-04 20:29] LABS: Basophils Percent Auto 0.2 % (0.2-1.2); Eosinophils Percent Auto 0.3 % (0-4.4); Hematocrit 31.1 % (37.0-47.0); Hemoglobin 9.6 g/dL (12.0-15.0); Immature Granulocyte Absolute 0.08 K/mm3 (0.00-0.031); Immature Granulocyte Percent A 0.6 % (0-0.5); Lymphocytes Absolute Auto 1.86 K/mm3 (0.9-3.2); Lymphocytes Percent Auto 14.6 % (18.3-44.2); Mean Corpuscular HGB Conc 30.9 g/dl (32-36); Mean Corpuscular Hemoglobin 25.5 pg (26-34); Mean Corpuscular Volume 82.7 fl (80-100); Mean Platelet Volume 10.5 fl (7.4-10.4); Monocytes Absolute Auto 1.2 K/mm3 (0.1-0.6); Monocytes Percent Auto 9.4 % (2.6-8.5); Neutrophils Absolute Auto 9.5 K/mm3 (1.3-6.7); Neutrophils Percent Auto 74.9 % (45.5-73.1); Platelet Count Result 300 k/mm3 (150-375); Red Blood Count 3.76 M/mm3 (4.2-5.4); Red Cell Distribution Width 14.2 % (11.5-14.5); White Blood Count 12.7 K/mm3 (4.5-10.0)
--- NOTE | 2021-10-04 20:36 | WPDANESEPP ---
Anes - Eval Pre Procedure Procedure: Labor epidural Date/Time: 10/04/21 20:36 Surgeon: Hunter Preop Diagnosis: Abd pain with contractions Pre Op Diagnosis: Labor Patient Data Age: 26 Gender: F Height: Weight: Last Vital Signs Pulse 105 H 10/04/21 20:31 BP 119/68 10/04/21 20:31 Allergies Allergy/AdvReac Type Severity Reaction Status Date / Time No Known Allergies Allergy Verified 08/09/21 11:18 Home Medications Medication Instructions Recorded Confirmed Type ferrous sulfate 325 mg (65 mg 325 mg PO BIDWM 90 days #180 tabs 07/21/20 10/04/21 Rx iron) tablet (Iron (ferrous sulfate)) vit no.95-ferrous 1 tablet PO DAILY 90 days #90 tabs 07/21/20 10/04/21 Rx fumarate 28 mg-folic acid 800 mcg tablet () Laboratory Tests 10/04/21 10/04/21 20:23 20:23 WBC 12.7 K/mm3 H K/mm3 (4.5-10.0) RBC 3.76 M/mm3 L M/mm3 (4.2-5.4) Hgb 9.6 g/dL L g/dL (12.0-15.0) Hct 31.1 % L % (37.0-47.0) MCV 82.7 fl fl (80-100) MCH 25.5 pg L pg (26-34) MCHC 30.9 g/dl L g/dl (32-36) RDW 14.2 % % (11.5-14.5) Plt Count 300 k/mm3 k/mm3 (150-375) MPV 10.5 fl H fl (7.4-10.4) Immature Gran % (Auto) 0.6 % H % (0-0.5) Neut % (Auto) 74.9 % H % (45.5-73.1) Lymph % (Auto) 14.6 % L % (18.3-44.2) [place] % (Auto) 9.4 % H % (2.6-8.5) Eos % (Auto) 0.3 % % (0-4.4) Baso % (Auto) 0.2 % % (0.2-1.2) Lymph # (Auto) 1.86 K/mm3 K/mm3 (0.9-3.2) [place] # (Auto) 1.2 K/mm3 H K/mm3 (0.1-0.6) Eos # (Auto) 0.0 K/mm3 K/mm3 (0-0.3) Baso # (Auto) 0.0 K/mm3 K/mm3 (0.0-0.1) Abs Immat Gran (auto) 0.08 K/mm3 H K/mm3 (0.00-0.031) Absolute Neuts (auto) 9.5 K/mm3 H K/mm3 (1.3-6.7) Absolute Nucleated RBC 0.0 K/mm3 K/mm3 (0.0-0.012) Nucleated RBC % 0.0 % % (0.0-0.2) RPR Pending : gestational age HCG: positive Patient hx anesthesia problems: none Family hx anesthesia problems: none Results Review: All pre-operative results and documents have been reviewed as part of the pre-operative evaluation. [facility] Past Medical History Medical History Anxiety COVID-19 virus infection Cystic disease of liver Depression Tachycardia Surgical History Surgical History History of dilation and curettage (~05/2019) Suction D&C - missed AB History of hysteroscopy (~09/2019) D&C - endometrial polyp - irregular bleeding hscope D&C POC -02/16/2019 Family History Family History Sibling Asthma Grandparent Acute myocardial infarction Intracranial aneurysm Sibling Heart disease Mother Hypertension Mother No problems noted. Grandparent Kidney malignant neoplasm Non Hodgkin's lymphoma Sibling Klippel-Feil sequence Sibling Scoliosis of cervical spine Father No problems noted. Social History Social History Smoking status: Never smoker Alcohol intake: unknown Substance use: never Gender identity (if verbalized by the patient): Female Sexual Orientation (if Verbalized by the Patient): Straight or Heterosexual Spiritual care concerns: No Exam Day of Procedure 10/04/21 20:36
--- NOTE | 2021-10-04 20:37 | LDADM ---
This patient, Kassy Brooke, was admitted to Labor/Delivery/Recovery 106 on 10/04/21 at 18:30. Plans for labor, pain management and were discussed with patient. Patient/family oriented to hospital policies and general routines including ID bracelet, bed and alarms, visiting hours, pain management, procedures, bathroom and other care routines, personal items, smoking policy, room service/diet and guest tray routines, infant security routines, and visiting hours. Patient/Family are encouraged to report perceived risks to care and to ask questions if they do not understand what they are told or what they should do. See OBIX for further documentation.
--- NOTE | 2021-10-04 21:33 | PM.IMHP ---
H&P: HPI History of Present Illness Date/Time: 10/04/21 21:33 Chief Complaint: contractions Narrative: Kassy is a 26yo @ 38.3wks (HECTOR 10/15/21) who presented to L&D with painful contractions and was found to be 5.5cm and made change to 6cm. She denies any VB or LOF. Now s/p epidural and comfortable. Her has been complicated by: 1. Rh neg s/p rhogam 03/09/21 2. Subchorionic hematoma w/ continued bleeding until 03/2021 3. Anemia on iron 4. Short interpregnancy interval 5. Covid infection in @ 36wks Review of Systems Review of Systems: All systems reviewed & are unremarkable except as noted in HPI and below PMFSH Past Medical History Medical History Anxiety COVID-19 virus infection Cystic disease of liver Depression Tachycardia Surgical History Surgical History History of dilation and curettage (~05/2019) Suction D&C - missed AB History of hysteroscopy (~09/2019) D&C - endometrial polyp - irregular bleeding hscope D&C POC -02/16/2019 Family History Family History Sibling Asthma Grandparent Acute myocardial infarction Intracranial aneurysm Sibling Heart disease Mother Hypertension Mother No problems noted. Grandparent Kidney malignant neoplasm Non Hodgkin's lymphoma Sibling Klippel-Feil sequence Sibling Scoliosis of cervical spine Father No problems noted. Social History Social History Smoking status: Never smoker Alcohol intake: unknown Substance use: never Gender identity (if verbalized by the patient): Female Sexual Orientation (if Verbalized by the Patient): Straight or Heterosexual Spiritual care concerns: No Meds Home Medications and Allergies Home Medications Medication Instructions Recorded Confirmed Type ferrous sulfate 325 mg (65 mg 325 mg PO BIDWM 90 days #180 tabs 07/21/20 10/04/21 Rx iron) tablet (Iron (ferrous sulfate)) vit no.95-ferrous 1 tablet PO DAILY 90 days #90 tabs 07/21/20 10/04/21 Rx fumarate 28 mg-folic acid 800 mcg tablet () Allergies Allergy/AdvReac Type Severity Reaction Status Date / Time No Known Allergies Allergy Verified 08/09/21 11:18 Vital Signs Vital Signs - 24 hr 10/04/21 19:16 10/04/21 19:31 10/04/21 19:46 Pulse Rate 107 H 107 H 101 H Blood Pressure 111/58 L 126/61 144/105 H Pulse Oximetry Oxygen Delivery 10/04/21 20:01 10/04/21 20:04 10/04/21 20:06 Pulse Rate 109 H 107 H 109 H Blood Pressure 194/128 H 150/121 H 103/55 L Pulse Oximetry Oxygen Delivery 10/04/21 20:17 10/04/21 20:31 10/04/21 20:44 Pulse Rate 105 H 105 H 103 H Blood Pressure 110/60 119/68 112/75 Pulse Oximetry 100 Oxygen Delivery 10/04/21 20:47 10/04/21 20:48 10/04/21 20:49 Pulse Rate 108 H 103 H Blood Pressure 114/59 L 102/59 L Pulse Oximetry 100 Oxygen Delivery 10/04/21 20:52 10/04/21 20:54 10/04/21 20:55 Pulse Rate 96 108 H Blood Pressure 106/64 96/44 L Pulse Oximetry 100 Oxygen Delivery 10/04/21 20:59 10/04/21 21:01 10/04/21 21:03 Pulse Rate 110 H 105 H 102 H Blood Pressure 124/76 111/52 L 96/59 L Pulse Oximetry 100 Oxygen Delivery 10/04/21 21:04 10/04/21 21:05 10/04/21 21:07 Pulse Rate 99 102 H Blood Pressure 106/58 L 103/55 L Pulse Oximetry 100 Oxygen Delivery 10/04/21 21:09 10/04/21 21:11 10/04/21 21:14 Pulse Rate 94 91 Blood Pressure 108/64 106/59 L Pulse Oximetry 100 100 Oxygen Delivery 10/04/21 21:17 10/04/21 21:19 10/04/21 21:24 Pulse Rate 99 Blood Pressure 106/55 L Pulse Oximetry 100 100 Oxygen Delivery 10/04/21 21:29 10/04/21 21:31 10/04/21 20:30 Pulse Rate 107 H Blood Pressure 99/41 L Pulse Oximetry 100 Oxygen Deliv
--- NOTE | 2021-10-04 21:41 | WPDHPUPDATE1 ---
History and Physical Update Update Date/Time: 10/04/21 21:41 History and Physical has been reviewed, including an updated exam of the patient. There are NO changes in the patient's condition. Risks, benefits, and alternatives have been discussed and questions answered. Patient agrees to proceed with procedure.
[2021-10-04] MEDS: OXYTOCIN 30 UNITS/NS 500 ML 30 UNITS/500 ML BAG 999 UNITS IV CONT (22:33)
--- NOTE | 2021-10-04 22:47 | PM.OBPRVD ---
OB - Delivery Note Procedure Delivery date: 10/04/21 Events: Polyhydramnios (foul smelling, no chorioamnionitis) and Other (COVID infection ) Delivery augmentation: Rupture of Membranes Delivery monitor: External FHT and External Uterine Route of delivery: Laceration Description: Perineal - 1st Degree Delivery repair: vicryl Specimen: Yes (placenta) Quantitative Blood Loss (ml): 150 Anesthesia type: Epidural Disposition: Floor Baby Date of : 10/04/21 Time of : 22:32 Weeks of gestation at delivery: 38 (.3) Infant gender: Female Weight (pounds): 7 Weight (ounces): 10 presentation: vertex position: Left Occiput Anterior Placenta delivery description: Expressed Cord Vessel Description: 3 Vessels, Nuchal Cord, Loose and Delayed Cord Clamping score one minute: 9 score five minutes: 9 Narrative: Kassy presented in labor at 6 cm where rupture of membranes was performed with copious amounts of clear, but foul smelling fluid was noted, she was afebrile the duration of labor (approximately 1 hour from rupture until delivery). She rapidly progressed to complete dilation with strong desire to push. She pushed for 1 contraction and delivered the head over intact perineum. Nuchal cord was noted but loose and delivered through. She delivered the 's shoulders and body with assistance. The infant was immediately placed skin to skin and had spontaneous cry. Delayed cord clamping was performed. A segment of the cord was collected for cord gases. The remaining cord blood was collected for typing. With Pitocin running and gentle downward traction on the cord, the placenta delivered without complications. Minimal bleeding with good uterine tone was noted. Sponge, lap, instrument, and needle counts were correct at the end the procedure. Mom and baby were left bonding in the birthing suite in stable condition. [facility] Delivery Billing Delivery Delivery: Delivery Charge
[2021-10-04] MEDS: OXYTOCIN 30 UNITS/NS 500 ML 30 UNITS/500 ML BAG 125 UNITS IV CONT (23:07)
[2021-10-05] VITALS (10 sets, daily range): BP systolic 86–116; BP diastolic 56–69; PULSE 68–97; RESP 16–18; TEMP 36.3–36.6; O2SAT 98–100
[2021-10-05] MEDS: WITCH HAZEL 40 PADS 1 PAD TOPICAL (01:01)
[2021-10-05] MEDS: BENZOCAINE 20% AER SPR (*SP) 56 GM CAN 1 SPRAY TOPICAL (01:01)
[2021-10-05 05:11] LABS: Hematocrit 27.8 % (37.0-47.0); Hemoglobin 9.1 g/dL (12.0-15.0)
[2021-10-05] MEDS: POLYSACCHARIDE IRON COMPLEX 150 MG CAPSULE PO ×2 (08:23→16:38)
[2021-10-05] MEDS: MULTIVIT/MIN/PREN/FOL AC/IRON TABLET 1 TAB PO (08:23)
[2021-10-05 10:19] LABS: Rapid Plasma Reagin Non-Reactive (NonReactive)
[2021-10-05] MEDS: IBUPROFEN 600 MG TABLET PO (10:46)
--- NOTE | 2021-10-05 11:24 | PC.NURSE ---
[id number] Introductions were made, then consulted with patient to assess needs related to . Mother led the conversation with her experience feeding her so far. Mother works well with her with encouragement and education. Parent state infant just had a big spit up. Encouraged understanding of the benefits of skin to skin (unwrapping and placing vertically on her chest). After infant is settled discussed responsive feeding, how to watch for early feeding signs, frequency of feeding on demand about every 8-12 times in 24 hours (every 2-3 hours), milk production, duration of feeding, signs of adequate intake/output and how to record on the feeding sheet. Reviewed positioning, supporting the breast, asymmetrical latch (off-center), and leading with the chin with a big open side gape. Infant latched optimally to the left breast in football position. Education given to mother of how to visualize suck/swallow ratios 1:1. Infant was able to maintain latch without discomfort to mother. Nipple care reviewed with optimal latch and good positioning. Reviewed good handwashing when or touching the breast/nipples to prevent infection. Resources used to facilitate learning were used with the tool/mom and baby guide. Mother voiced understanding of responsive feedings, stimulating with skin to skin, hand expressed colostrum, touch, talking to infant to encourage if it has been 2 -3 hours since the start of the last , to call if does not latch or there is discomfort with . Reported to the primary RN.
--- NOTE | 2021-10-05 12:46 | WPDANLDPN2 ---
Anes-Prog Note L&D Date/Time: 10/05/21 12:46 Comfortable throughout: labor and delivery Neuraxial method: epidural Epidural/Spinal procedure site: clean & non-tender Neuro status: Neuro function grossly intact. Cardiovascular status: normal Respiratory status: normal Airway patency: baseline Mental status: baseline Post-Op hydration status: normal Vital Signs: Last Vital Signs Temp 97.4 F L 10/05/21 12:03 Pulse 83 10/05/21 12:03 Resp 16 10/05/21 12:03 BP 108/65 10/05/21 12:03 Pulse Ox 98 10/05/21 12:03 O2 Del Method Room Air 10/05/21 11:50 Pain score (VAS): 0 I/O: Intake & Output 10/04/21 10/05/21 10/05/21 23:59 07:59 15:59 Intake Total 1000 Output Total 150 Balance 850 Patient feedback: Patient satisfied with anesthetic care.
--- NOTE | 2021-10-05 13:13 | PM.OBPNVD ---
OB - PN: Subj Subjective Date/time seen: 10/05/21 12:44 Narrative: PPD#1 Kassy reports doing well today. Her bleeding is light. Her pain is controlled. She is tolerating regular diet, voiding, passing gas, and ambulating without issues. She is breast feeding, wanting help with lacation. OB - PN: Obj Data Labs CBC & Chem 7: 10/05/21 04:31 Labs: Laboratory Results - last 24 hr 10/04/21 10/04/21 10/04/21 20:23 20:23 20:23 WBC 12.7 H RBC 3.76 L Hgb 9.6 L Hct 31.1 L MCV 82.7 MCH 25.5 L MCHC 30.9 L RDW 14.2 Plt Count 300 MPV 10.5 H Immature Gran % (Auto) 0.6 H Neut % (Auto) 74.9 H Lymph % (Auto) 14.6 L [place] % (Auto) 9.4 H Eos % (Auto) 0.3 Baso % (Auto) 0.2 Lymph # (Auto) 1.86 [place] # (Auto) 1.2 H Eos # (Auto) 0.0 Baso # (Auto) 0.0 Abs Immat Gran (auto) 0.08 H Absolute Neuts (auto) 9.5 H Absolute Nucleated RBC 0.0 Nucleated RBC % 0.0 RPR Non-reactive Blood Type A Negative Antibody Screen Positive Antibody Identification Passive Due to RH Imm Glob Antigen Identification Cancelled MARIA ESTHER, IgG Interpret Not Performed MARIA ESTHER, Poly Interpret Negative MARIA ESTHER, Complement Interp Not Performed Screen Baby's Blood Type Baby's MARIA ESTHER Doses of RhIg Required 10/05/21 10/05/21 04:31 04:31 WBC RBC Hgb 9.1 L Hct 27.8 L MCV MCH MCHC RDW Plt Count MPV Immature Gran % (Auto) Neut % (Auto) Lymph % (Auto) [place] % (Auto) Eos % (Auto) Baso % (Auto) Lymph # (Auto) [place] # (Auto) Eos # (Auto) Baso # (Auto) Abs Immat Gran (auto) Absolute Neuts (auto) Absolute Nucleated RBC Nucleated RBC % RPR Blood Type A Negative Antibody Screen TNP Antibody Identification Cancelled Antigen Identification TNP MARIA ESTHER, IgG Interpret Not Performed MARIA ESTHER, Poly Interpret Not Performed MARIA ESTHER, Complement Interp Not Performed Screen Negative Baby's Blood Type O pos Baby's MARIA ESTHER Negative Doses of RhIg Required 1 OB - PN A/P Plan day: 1 Plan: routine care and discharge home (tomorrow) Comments: - Pelvic rest; take meds as prescribed - ER return precautions: fever, n/v/abd pain, bleeding, HTN Time Spent With Patient Time: Total time spent is greater than 50% in coordination of care (as documented) at patient's floor/unit and/or counseling patient: Review of Systems Constitutional: Constitutional: Denies chills, Denies fever(s) and Denies headache(s) Eyes: Eyes: Denies change in vision ENT: Denies dizziness and Denies headache(s) Cardiovascular: Cardiovascular: Denies chest pain, Denies palpitations and Denies dyspnea Respiratory: Respiratory: Denies cough and Denies dyspnea Gastrointestinal: Gastrointestinal: Denies nausea and Denies vomiting Neurologic: Denies dizziness and Denies headache(s) Endocrine: Endocrine: Denies palpitations Exam Const: General: cooperative, comfortable and no acute distress Orientation/consciousness: patient oriented x3 Resp: Effort & Inspection: normal respiratory effort Auscultation: clear to auscultation bilaterally Cardio: Rate: regular rate GI: Inspection: non-distended GI Palp: No abdominal tenderness and Yes Soft to palpation Auscultation: normal bowel sounds : Other: fundus firm Skin: General skin exam: normal color Neuro: General: patient oriented x3 Extrem: General: normal to inspection Psych: Appearance: grossly normal Affect: normal affect Attitude: cooperative
--- NOTE | 2021-10-05 14:07 | PC.NURSE ---
[id number] Consulted with patient to assess needs related to . Mother led conversation with her experience with feeding baby so far. Mother works well with her infant with encouragement. Reviewed working with infant, breast, nipples and how to protect the nipples with an optimal deep latch, good positioning, and good hand washing. Encouraged understanding the benefits of skin to skin, responding to feeding cues, frequencies of feeding 8-12 times in 24 hours (approximately 2-3 hours), duration of feedings, milk production, intake/output feeding sheet and signs of adequate intake encouraging swallowing at the breast. Reviewed positioning and alignment, supporting breast, off-centered (asymmetrical latch) and leading with the chin with big open wide gape. Infant latched optimally to the right breast in football position. Education given to mother of how to visualize suck/swallow ratios and drinking at the breast. Infant was able to maintain latch without discomfort to mother. Nipple care reviewed with optimal latch and good positioning. Mother voiced understanding of the education shared, calling for assistance if the infant does not latch or if there is discomfort with . Reported to the primary RN.
[2021-10-05] MEDS: RHO(D) IMMUNE GLOBULIN 300 MCG/2 ML SYRINGE IM (14:33)
[2021-10-05] MEDS: ACETAMINOPHEN 325 MG TABLET 650 MG PO (14:37)
[2021-10-05] MEDS: DOCUSATE SODIUM 100 MG CAPSULE PO (16:38)
[2021-10-06] MEDS: IBUPROFEN 600 MG TABLET PO (07:13)
[2021-10-06] MEDS: DOCUSATE SODIUM 100 MG CAPSULE PO (07:13)
[2021-10-06] MEDS: POLYSACCHARIDE IRON COMPLEX 150 MG CAPSULE PO (07:14)
[2021-10-06] MEDS: MULTIVIT/MIN/PREN/FOL AC/IRON TABLET 1 TAB PO (07:14)
[2021-10-06] MEDS: LANOLIN (LANSINOH) 7.5 GM CREAM 1 APPLIC TOPICAL (07:14)
--- NOTE | 2021-10-06 08:14 | P.DS_ITS ---
DS: Admitting Diagnosis Discharge Date 10/06/2021 Admitting Diagnosis active labor at term DS: Discharge Diagnosis Discharge Diagnosis (1) Normal vaginal delivery: Code(s): O80 - Encounter for full-term uncomplicated delivery Status: Acute OB - DS: Summary OB Procedures : Ultrasound OB Procedures Intrapartum: Spontaneous Vag Delivery OB Procedures: : RHo (D) lg Peripartum Data Infant Delivery Method: Natural Vaginal Laceration Description: Perineal - 1st Degree complications: none 1: Gender: Female Disposition of : home Status at Discharge Functional status at discharge: independent ambulation Overall status at discharge: patient is back to baseline Time Spent with Patient Time attestation: Total time spent providing and/or coordinating discharge services: Time spent: Less than 30 minutes DS: Data Data Completed and Pending Pending studies at discharge: Pending at discharge 10/04/21 22:39 Surgical [PTH] Routine Labs on day of discharge: Labs from last 24 hours 10/05/21 10/04/21 04:31 20:23 RPR Non-reactive Blood Type A Negative Antibody Screen TNP Antibody Identification Cancelled Antigen Identification TNP MARIA ESTHER, IgG Interpret Not Performed MARIA ESTHER, Poly Interpret Not Performed MARIA ESTHER, Complement Interp Not Performed Screen Negative Baby's Blood Type O pos Baby's MARIA ESTHER Negative Doses of RhIg Required 1 Discharge Plan Discharge Attending physician on discharge: Kyung Harrison Discharging Clinician: Kyung Harrison Anticipated Discharge Date/Time: 10/06/21 10:00 Patient Disposition: Home, Self-Care Activity: may shower and pelvic rest Diet: regular Patient Instructions: Antibiotic Form Stand Alone Forms: General Discharge Information Follow-up/Referrals: Kyung Harrison MD [Physician] - 4 Weeks Discharge Medications: New acetaminophen [Mapap (acetaminophen)] 325 mg Tablet 650 mg PO Q6H PRN (Reason: Mild Pain (1-3) Or Headache) 10 Days Qty: 60 0RF docusate sodium 100 mg Capsule 100 mg PO BID PRN (Reason: Constipation) 20 Days Qty: 40 0RF ibuprofen 600 mg Tablet 600 mg PO Q6H PRN (Reason: Cramping) 10 Days Qty: 40 0RF sertraline [Zoloft] 50 mg Tablet See Rx Instructions .ROUTE .COMPLEX Qty: 97 0RF Rx Instructions: take 1/2 tablet for 14 days, then increase to 1 tablet daily thereafter Continued ferrous sulfate [Iron (ferrous sulfate)] 325 mg (65 mg iron) Tablet 325 mg PO BIDWM 90 Days Qty: 180 0RF PNV [id number]-ferrous fumarate-FA [] 28 mg iron- 800 mcg Tablet 1 tablet PO DAILY 90 Days Qty: 90 0RF Date of admission: 10/04/21 18:30 Primary Care Provider: PHYSICIAN,PHYSICIAN OPHTHALMOLOGIST Admitting Provider: Kyung Harrison Attending physician on admission: Kyung Harrison Condition: Stable
[2021-10-06 08:20] VITALS: BP 109/65; PULSE 68; RESP 18; TEMP 36.3; O2SAT 100
[2021-10-06] MEDS: SERTRALINE HCL 25 MG TABLET PO (09:21)
--- NOTE | 2021-10-06 15:04 | PC.NURSE ---
[id number] Mother led the conversation with her experience, plan to feed her so far, her ability to independently latch without discomfort, pump consistently, and supplement her with formula. Reminded mother to use good handwashing technique to prevent infection. Mother is feeding appropriately for growth of and understands stimulating infant to eat if needed. Infant has had appropriate feedings in the last 24 hours meets the outcomes for weight, output and jaundice after phototherapy is still being assessed for possible discharge today. Mother states she is confident to continue feeding her infant at home or when to call for assistance and denies any additional assistance or education at this time. Reinforced understanding of milk production, transition of milk, signs of adequate intake, prevention/relief of engorgement, responsive after visualizing feeding cues, the different methods of stimulating to breastfeed 2-3 hours after the start of the last feeding, community resources, medication information reviewed per [employer] and when to call a provider using the resource of the mom and baby guide/[facility] website. Mother voiced understanding of the education shared. Reported to the primary RN.
--- NOTE | 2021-10-06 15:28 | PC.NURSE ---
1520 - Mother is sitting on her bed after feeding a bottle. Mother and baby will be discharged home today with a follow up appt tomorrow. She led the conversation confident in her skills after reviewing good positioning, rocking motion, suck/swallow (what it sounds and looks like). Mother breastfed her now 15 month and has a great support persons at home, mom and baby guide to refer to, and number to call if needed. Reported to primary RN.
[2021-10-06] MEDS: TETANUS,DIPHTHERIA,AC PERTUSSIS ADULT (0.5 ML) BOOSTRIX IM (16:10)
[2021-10-06] MEDS: MEASLES,MUMPS,RUBELLA VACCINE 0.5 ML VIAL SUB-Q (16:12)
[2021-10-07 17:52] VITALS: BP 136/92; PULSE 86; RESP 20; TEMP 37.7; O2SAT 99
== END 2021-10-06 17:38 | disposition home or self-care (01) | DRG 807 ==
LOC: ANHLDR 19:25 → ANHOB2 10-05 01:40
PROVIDERS: Admitting Provider Obstetrics & Gynecology; Visit Provider Obstetrics & Gynecology
DX: O99.02 Anemia complicating childbirth (principal); Z37.0 Single live birth; O99.344 Other mental disorders complicating childbirth; F41.9 Anxiety disorder, unspecified; F32.A Depression, unspecified; O40.3XX0 Polyhydramnios, third trimester, not applicable or unspecified; O70.0 First degree perineal laceration during delivery; O69.81X0 Labor and delivery complicated by cord around neck, without compression, not applicable or unspecified; Z3A.38 38 weeks gestation of pregnancy; Z86.16 Personal history of COVID-19; Z67.91 Unspecified blood type, Rh negative
CPT/HCPCS: 36415; 85014; 85018; 85025; 85461; 86592; 86850; 86880; 86900; 86901; 86902; 88307; 90384; 90710; 90715; A9270; J2590; J2790; J2795; J3010; J7120

== ENCOUNTER 2022-06-08 13:28 | Outpatient (CLI) | payer OTHER, SELFPAY ==
--- NOTE | ~2022-06-08 | XR_ITS ---
Lumbosacral Spine: AP and lateral views Clinical History: Pain Findings: The normal lordotic curve is maintained. The vertebral bodies and posterior elements are i ntact. The intervertebral disc spaces are preserved. The sacroiliac joints are normally outlined. Impression: No significant abnormality. Reviewed, dictated and finalized at [facility]. Impression: No significant abnormality.
--- NOTE | ~2022-06-08 | XR_ITS ---
Cervical Spine: AP, lateral, open-mouth views Clinical History: Pain Findings: There is mild reversal of the normal cervical lordosis. The vertebral bodies and posterior elements appear intact. The intervertebral disc spaces are well maintained. Pre-vertebral soft tiss ues are unremarkable. Impression: Mild reversal of the normal cervical lordosis, otherwise unremarkable exam. Reviewed, dictated and finalized at [facility]. Impression: Mild reversal of the normal cervical lordosis, otherwise unremarkable exam.
--- NOTE | ~2022-06-08 | XR_ITS ---
Thoracic spine: Clinical Indication: Back pain AP and lateral views were performed. No fracture is seen. There is normal alignment of the vertebrae. The intervertebral disc spaces appe ar normal. Paravertebral soft tissues appear normal. Impression: No significant abnormalities noted. Reviewed, dictated and finalized at [facility]. Impression: No significant abnormalities noted.
== END 2022-06-08 13:29 | disposition home or self-care (01) ==
PROVIDERS: Visit Provider Chiropractor
DX: M54.2 Cervicalgia (principal); M54.6 Pain in thoracic spine; M54.50 Low back pain, unspecified
CPT/HCPCS: 72040; 72070; 72100

== ENCOUNTER 2022-09-08 22:14 | Emergency (ER) | payer OTHER, SELFPAY ==
[2022-09-08 22:26] VITALS: BP 115/68; PULSE 82; RESP 16; TEMP 37.2; O2SAT 99
--- NOTE | 2022-09-08 22:42 | ED.FEMALEGU ---
HPI - Female Genitourinary General Chief complaint: Vaginal Bleeding Stated complaint: vaginal bleeding Time Seen by Provider: 09/08/22 22:34 History of Present Illness HPI Narrative: who had a D&E at 10wk at [facility] on presents with large amount of vaginal bleeding, she had had some scant bleeding a few days ago after the procedure which had resolved, but around 6 PM today, passed a large clot, and then several more clots. She felt slightly dizzy. She was reporting severe pelvic cramping. EMS was called, by the time they arrived, the bleeding had resolved, she was feeling fine. She received 75mcg of fentanyl IV and IVF from EMS. Related Data Allergies Allergy/AdvReac Type Severity Reaction Status Date / Time No Known Allergies Allergy Verified 08/09/21 11:18 Review of Systems Review of Systems: CONST: No fever. HEENT: No sore throat C/V: No chest pain RESP: No cough GI: Reports pelvic cramping : Vaginal bleeding with clots, now resolved M/S: No joint pain. SKIN: No rash. NEURO: Lightheadedness now resolved PSYCH: [No depression] [facility] Past Medical History Medical History Anxiety COVID-19 virus infection Cystic disease of liver Depression Tachycardia Surgical History Surgical History History of dilation and curettage (~05/2019) Suction D&C - missed AB History of hysteroscopy (~09/2019) D&C - endometrial polyp - irregular bleeding hscope D&C POC -02/16/2019 Family History Family History Sibling Asthma Grandparent Acute myocardial infarction Intracranial aneurysm Sibling Heart disease Mother Hypertension Mother No problems noted. Grandparent Kidney malignant neoplasm Non Hodgkin's lymphoma Sibling Klippel-Feil sequence Sibling Scoliosis of cervical spine Father No problems noted. Social History Social History Smoking status: Never smoker Alcohol intake: unknown Substance use: never Gender identity (if verbalized by the patient): Female Sexual Orientation (if Verbalized by the Patient): Straight or Heterosexual Spiritual care concerns: No Exam Narrative: EXAMINATION OF ORGAN SYSTEMS/BODY AREAS: Constitutional: Vital signs per nursing GENERAL:[No acute distress, non-toxic appearing.] HEAD: Normal with no signs of head trauma. EYES: EOMI, conjunctiva normal ENT: Hearing grossly intact LUNGS: Nonlabored breathing. HEART: [Regular rate and rhythm] ABD: [Soft], [nontender to palpation] : No large active bleeding; scant blood in vaginal vault. No severe CMT or adnexal tenderness EXT: Normal range of motion SKIN: [No rashes or lesions.] NEURO: [Alert and oriented x 3. No gross focal sensory or strength deficits.] PSYCH: Normal affect Course Vital Signs Vital signs: Vital Signs Temperature 98.9 F 09/08/22 22:26 Pulse Rate 82 09/08/22 22:26 Respiratory Rate 16 09/08/22 22:26 Blood Pressure 115/68 09/08/22 22:26 Pulse Oximetry 99 09/08/22 22:26 Oxygen Delivery Room Air 09/08/22 22:26 Temperature 98.9 F 09/08/22 22:26 Pulse Rate 90 09/09/22 02:27 Respiratory Rate 18 09/09/22 02:27 Blood Pressure 104/75 09/09/22 02:27 Pulse Oximetry 100 09/09/22 02:27 Oxygen Delivery Room Air 09/08/22 22:26 MDM - Female Genitourinary MDM Narrative Medical decision making narrative: 27-year-old female presenting with vaginal bleeding, after surgical several days ago, vital signs stable here, on exam her abdomen is soft, nontender, exam showing scant blood without severe pelvic tenderness. CBC obtained here is normal. On reevaluation, patient has been here for several hours and there is no new bleeding, she is stable for discharge with follow-up to her OB, and
[2022-09-09 00:34] LABS: Basophils Percent Auto 0.3 % (0.2-1.2); Eosinophils Absolute Auto 0.2 K/mm3 (0-0.3); Eosinophils Percent Auto 1.1 % (0-4.4); Hematocrit 35.4 % (37.0-47.0); Immature Granulocyte Absolute 0.03 K/mm3 (0.00-0.031); Immature Granulocyte Percent A 0.2 % (0-0.5); Lymphocytes Absolute Auto 2.31 K/mm3 (0.9-3.2); Lymphocytes Percent Auto 16.4 % (18.3-44.2); Mean Corpuscular HGB Conc 33.9 g/dl (32-36); Mean Corpuscular Hemoglobin 29.9 pg (26-34); Mean Corpuscular Volume 88.3 fl (80-100); Mean Platelet Volume 10.4 fl (7.4-10.4); Monocytes Absolute Auto 0.8 K/mm3 (0.1-0.6); Monocytes Percent Auto 5.5 % (2.6-8.5); Neutrophils Absolute Auto 10.8 K/mm3 (1.3-6.7); Neutrophils Percent Auto 76.5 % (45.5-73.1); Platelet Count Result 287 k/mm3 (150-375); Red Blood Count 4.01 M/mm3 (4.2-5.4); Red Cell Distribution Width 12.7 % (11.5-14.5); White Blood Count 14.1 K/mm3 (4.5-10.0)
[2022-09-09 00:37] LABS: Appearance Urine Clear (Clear); Bacteria Urine None Seen /hpf; Bilirubin Urine Negative (Negative); Blood Urine 3+ (Negative); Color Urine Yellow (Yellow); Glucose Urine UA Negative (Negative); Ketones Urine Trace mg/dL (Negative); Leukocyte Esterase Ur Trace LEU/UL (Negative); Nitrate Urine Negative (Negative); Non Pathogenic Casts 0-2; Protein Urine Negative (Negative); Specific Grav Ur 1.009 (1.001-1.035); Squamous Epithelial Cell Urine None seen /hpf (Few); Urobilinogen Urine 0.2 mg/dL (<2.0); WBC Urine 0-5 /hpf; pH Urine 5.5 (5.0-9.0)
[2022-09-09 00:44] LABS: Alanine Aminotransferase 30 U/L (6-35); Albumin Level 4.2 g/dL (3.5-5.1); Alkaline Phosphatase 60 U/L (38-126); Anion Gap 7 mmol/L (8-16); Aspartate Amino Transferase 25 U/L (14-36); Bilirubin,Total 0.4 mg/dL (0.2-1.3); Blood Urea Nitrogen 14 mg/dL (7-17); Calcium 8.2 mg/dL (8.4-10.2); Carbon Dioxide 21 mmol/L (22-30); Chloride 110 mmol/L (98-107); Estimated CRCL calculation 132 ml/min; Estimated Glomerular Filt Rate > 60; Glucose 104 mg/dL (65-110); Potassium 3.9 mmol/L (3.4-5.0); Sodium 138 mmol/L (137-145)
[2022-09-09 00:49] LABS: Add Urine Microscopic? YES
[2022-09-09 00:54] LABS: Prothrombin Time 13.4 Seconds (11.1-14.7)
[2022-09-09 00:55] LABS: Partial Thromboplastin Time 26.1 SECONDS (22.3-36.8)
[2022-09-09 02:27] VITALS: BP 104/75; PULSE 90; RESP 18; O2SAT 100
== END 2022-09-09 02:28 | disposition home or self-care (01) ==
PROVIDERS: Emergency Provider Emergency Medicine
DX: N93.9 Abnormal uterine and vaginal bleeding, unspecified (principal); Q44.6 Cystic disease of liver; F41.9 Anxiety disorder, unspecified; F32.A Depression, unspecified; Z86.16 Personal history of COVID-19
CPT/HCPCS: 36415; 80053; 81001; 81025; 85025; 85610; 85730; 86850; 86880; 86900; 86901; 99283

== ENCOUNTER 2023-01-30 12:05 | Emergency (ER) | payer OTHER, SELFPAY ==
[2023-01-30 12:19] VITALS: BP 117/67; PULSE 94; RESP 20; TEMP 36.7; O2SAT 100
--- NOTE | 2023-01-30 12:21 | ED.URI ---
HPI - URI/Sore Throat General Chief Complaint: Upper Respiratory Infection Stated Complaint: congestion,bodyaches Time Seen by Provider: 01/30/23 12:21 Source: patient, RN notes reviewed and old records reviewed Mode of arrival: ambulatory Limitations: no limitations History of Present Illness HPI Narrative: 27-year-old female presents to the [facility] with burning with burning urination, body aches, sinus congestion. Reports a positive at home test on Saturday days ago. Patient states the congestion started Saturday, body aches started Saturday. Has taken Advil Denies, denies fevers. Onset (ago): day(s) (3-5) Treatments prior to arrival: ibuprofen Related Data Home Medications Medication Instructions Recorded Confirmed No Home Medications 01/30/23 01/30/23 Allergies Allergy/AdvReac Type Severity Reaction Status Date / Time No Known Allergies Allergy Verified 08/09/21 11:18 Review of Systems Review of Systems: All systems reviewed & are unremarkable except as noted in HPI and below Constitutional: Constitutional: Reports as per HPI and Reports body ache(s) Eyes: Eyes: Reports no additional eye complaints ENT: Reports as per HPI and Reports nasal congestion Cardiovascular: Cardiovascular: Reports no additional cardiovascular complaints, Denies chest pain and Denies dyspnea Respiratory: Respiratory: Reports no additional respiratory complaints, Denies chest congestion, Denies cough and Denies dyspnea Gastrointestinal: Gastrointestinal: Reports no additional gastrointestinal complaints, Denies abdominal pain, Denies nausea and Denies vomiting Genitourinary: Genitourinary: Reports as per HPI Musculoskeletal: Musculoskeletal: Reports no additional musculoskeletal complaints Integumentary/Breasts: Skin/Breast: Reports system reviewed and no additional complaints, except as docu Neurologic: Reports system reviewed and no additional complaints, except as documented Psychiatric: Psychiatric: Reports no additional psychiatric complaints Allergic/Immunologic: Allergic/Immunologic: Reports no additional allergic/immunologic complaints PMFSH Past Medical History Medical History Anxiety COVID-19 virus infection Cystic disease of liver Depression Tachycardia Surgical History Surgical History History of dilation and curettage (~05/2019) Suction D&C - missed AB History of hysteroscopy (~09/2019) D&C - endometrial polyp - irregular bleeding hscope D&C POC -02/16/2019 Family History Family History Sibling Asthma Grandparent Acute myocardial infarction Intracranial aneurysm Sibling Heart disease Mother Hypertension Mother No problems noted. Grandparent Kidney malignant neoplasm Non Hodgkin's lymphoma Sibling Klippel-Feil sequence Sibling Scoliosis of cervical spine Father No problems noted. Social History Social History Smoking status: Never smoker Alcohol intake: unknown Substance use: never Gender identity (if verbalized by the patient): Female Sexual Orientation (if Verbalized by the Patient): Straight or Heterosexual Spiritual care concerns: No Comments At the time of my signature, I reviewed and agree with the nursing past medical, surgical, social, and family history. There is no relevant family history pertinent to the patient complaint. Exam Const: General: cooperative, healthy appearing, comfortable, no acute distress, well developed, alert and well nourished Nutritional Appearance: well nourished Orientation/consciousness: patient oriented x3 Limitations: no limitations HENMT: Head: normal to inspection Ears: hearing grossly normal bilaterally, external ears normal, TM's normal bilaterally, EAC's normal, mastoids normal a
== END 2023-01-30 12:51 | disposition home or self-care (01) ==
PROVIDERS: Emergency Provider Nurse Practitioner
DX: O99.519 Diseases of the respiratory system complicating pregnancy, unspecified trimester (principal); Z3A.00 Weeks of gestation of pregnancy not specified; J06.9 Acute upper respiratory infection, unspecified; Z20.822 Contact with and (suspected) exposure to COVID-19
CPT/HCPCS: 81003; 81025; 87086; 87426; 87804; 99213; C9803; G0463

== ENCOUNTER 2023-02-09 14:40 | Emergency (ER) | payer OTHER, SELFPAY ==
--- NOTE | ~2023-02-09 | US_ITS ---
EXAMINATION: US OB <= 14 weeks fetus INDICATION: and pain TECHNIQUE: Sonography of the pelvis was performed by transabdominal techniques. COMPARISON: None. RESULT: Uterus: 7.2 x 9.8 x 9.1 cm. Anteverted. Homogenous myometrium. Intrauterine gestational sac: Single present. Yolk sac not visualized. Embryo: Single present. [place] rump length: 1.9 cm, corresponding gestational age 8 weeks, 4days. Gestational heart rate: presen t 159 bpm. Subgestational hematoma: Present, measuring up to 1.6 cm, less than 20% of the size of the gestation al sac. Right ovary: Not visualized. No adnexal mass. Left ovary: 3.7 x 2.3 x 2.7 cm. Vascular flow is present. Corpus luteal cyst. Pelvis free fluid: None. IMPRESSION: Single, live intrauterine gestation. Small subchorionic hematoma. Estimated Gestational Age: 8 weeks, 4 days by crown rump length. HECTOR by ultrasound 09/17/2023. Reviewed, dictated and finalized at [facility] IMPRESSION: Single, live intrauterine gestation. Small subchorionic hematoma. Estimated Gestational Age: 8 weeks, 4 days by crown rump length. HECTOR by ultras ound 09/17/2023.
[2023-02-09 14:41] VITALS: BP 145/81; PULSE 91; RESP 18; TEMP 36.6; O2SAT 100
[2023-02-09] MEDS: SODIUM CHLORIDE 0.9% IV 1,000 ML 999 ML IV CONT (16:11)
[2023-02-09 16:20] LABS: Basophils Percent Auto 0.4 % (0.2-1.2); Eosinophils Absolute Auto 0.1 K/mm3 (0-0.3); Eosinophils Percent Auto 1.1 % (0-4.4); Hematocrit 36.1 % (37.0-47.0); Hemoglobin 12.1 g/dL (12.0-15.0); Immature Granulocyte Absolute 0.02 K/mm3 (0.00-0.031); Immature Granulocyte Percent A 0.2 % (0-0.5); Lymphocytes Absolute Auto 2.87 K/mm3 (0.9-3.2); Lymphocytes Percent Auto 31.5 % (18.3-44.2); Mean Corpuscular HGB Conc 33.5 g/dl (32-36); Mean Corpuscular Hemoglobin 29.1 pg (26-34); Mean Corpuscular Volume 86.8 fl (80-100); Mean Platelet Volume 10.5 fl (7.4-10.4); Monocytes Absolute Auto 0.6 K/mm3 (0.1-0.6); Monocytes Percent Auto 6.5 % (2.6-8.5); Neutrophils Absolute Auto 5.5 K/mm3 (1.3-6.7); Neutrophils Percent Auto 60.3 % (45.5-73.1); Platelet Count Result 302 k/mm3 (150-375); Red Blood Count 4.16 M/mm3 (4.2-5.4); White Blood Count 9.1 K/mm3 (4.5-10.0)
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
[2023-02-09 16:29] LABS: Anion Gap 11 mmol/L (8-16); Blood Urea Nitrogen 8 mg/dL (7-17); Calcium 9.1 mg/dL (8.4-10.2); Carbon Dioxide 23 mmol/L (22-30); Chloride 104 mmol/L (98-107); Estimated CRCL calculation 108 ml/min; Estimated Glomerular Filt Rate > 60; Glucose 83 mg/dL (65-110); Sodium 138 mmol/L (137-145)
[2023-02-09 17:11] LABS: Appearance Urine Clear (Clear); Bilirubin Urine Negative (Negative); Blood Urine Negative (Negative); Color Urine Yellow (Yellow); Glucose Urine UA Negative (Negative); Ketones Urine 2+ mg/dL (Negative); Leukocyte Esterase Ur Negative LEU/UL (Negative); Nitrate Urine Negative (Negative); Protein Urine Negative (Negative); Specific Grav Ur 1.026 (1.001-1.035); pH Urine 5.5 (5.0-9.0)
[2023-02-09 17:13] LABS: Add Urine Microscopic? NO
== END 2023-02-09 18:06 | disposition home or self-care (01) ==
PROVIDERS: Emergency Provider Nurse Practitioner Family
DX: O9A.211 Injury, poisoning and certain other consequences of external causes complicating pregnancy, first trimester (principal); S39.91XA Unspecified injury of abdomen, initial encounter; Z86.16 Personal history of COVID-19; Z3A.08 8 weeks gestation of pregnancy; Y04.2XXA Assault by strike against or bumped into by another person, initial encounter; Y93.F9 Activity, other caregiving
CPT/HCPCS: 36415; 76801; 80048; 81003; 81025; 84702; 85025; 96360; 96361; 99284; J7030

== ENCOUNTER 2023-05-13 10:49 | Emergency (ER) | payer OTHER, SELFPAY ==
[2023-05-13 10:54] VITALS: BP 127/74; PULSE 82; RESP 20; TEMP 36.7; O2SAT 100
[2023-05-13 11:01] VITALS: BP 127/74; PULSE 82; RESP 20; TEMP 36.7; O2SAT 100
--- NOTE | 2023-05-13 11:10 | ED.FEMALEGU ---
HPI - Female Genitourinary General Chief complaint: Urogenital-Female Stated complaint: Urinary Problem Source: patient and RN notes reviewed Mode of arrival: ambulatory Limitations: no limitations History of Present Illness HPI Narrative: 28 y/o female presented for c/o burning with urination x3 days. Endorses urgency and suprapubic pressure, and has had mild chills. Denies hematuria, nausea, vomiting, abdominal pain, flank pain, constipation, diarrhea. Took Azo at onset, and pyridium with minimal relief. Pt also reports toenail fungus to left foot 3rd and 4th toes, unrelieved with otc applications. Related Data Allergies Allergy/AdvReac Type Severity Reaction Status Date / Time No Known Allergies Allergy Verified 02/09/23 14:49 Review of Systems Review of Systems: CONSTITUTIONAL: Denies body aches, fever, chills, or sweats. CARDIOVASCULAR: Denies chest pain, palpitations, or edema. RESPIRATORY: Denies cough or dyspnea. GASTROINTESTINAL: Denies abdominal pain, nausea, vomiting, or diarrhea. GENITOURINARY: Reports dysuria, denies frequency, hematuria, flank pain SKIN: Denies rash, itching, or wounds. MUSCULOSKELETAL: Denies back pain or myalgia. [facility] Past Medical History Medical History Anxiety COVID-19 virus infection Cystic disease of liver Depression Tachycardia Surgical History Surgical History History of dilation and curettage (~05/2019) Suction D&C - missed AB History of hysteroscopy (~09/2019) D&C - endometrial polyp - irregular bleeding hscope D&C POC -02/16/2019 Family History Family History Sibling Asthma Grandparent Acute myocardial infarction Intracranial aneurysm Sibling Heart disease Mother Hypertension Mother No problems noted. Grandparent Kidney malignant neoplasm Non Hodgkin's lymphoma Sibling Klippel-Feil sequence Sibling Scoliosis of cervical spine Father No problems noted. Social History Social History Smoking status: Never smoker Alcohol intake: unknown Substance use: never Gender identity (if verbalized by the patient): Female Sexual Orientation (if Verbalized by the Patient): Straight or Heterosexual Spiritual care concerns: No Comments At time of signature, I have reviewed and agree with nursing past medical, surgical, social and family history unless otherwise noted. Please see nursing chart for further information. There is no relevant family history pertinent to the presenting complaint Exam Narrative: GENERAL: Well-appearing ENT: Mucous membranes pink and moist. NECK: Normal AROM. Supple. CHEST: No respiratory distress. Clear to auscultation. HEART: Regular rate and rhythm. ABDOMEN: Soft, nontender, nondistended, normal active bowel sounds. No CVA tenderness SKIN: Warm, dry, Left 3 and 4th toes with mild onychomycosis NEURO: No focal deficits. Alert and oriented x3. Gait steady. PSYCH: Normal affect. No signs of depression or anxiety. Course Course Emergency Course: Patient is aware of diagnosis, understands and agrees to treatment plan. Anticipatory guidance given. Patient agrees to follow-up as directed and is aware of reasons to seek care at the emergency department. Portions of this record may have been created with voice recognition software Level of Care: Express Care Visit Vital Signs Vital signs: Vital Signs Temperature 98.1 F 05/13/23 10:54 Pulse Rate 82 05/13/23 10:54 Respiratory Rate 20 05/13/23 10:54 Blood Pressure 127/74 05/13/23 10:54 Pulse Oximetry 100 05/13/23 10:54 Oxygen Delivery Room Air 05/13/23 10:54 Temperature 98.1 F 05/13/23 11:01 Pulse Rate 82 05/13/23 11:01 Respiratory Rate 20 05/13/23 11:01 Blood Pressure 127/74
== END 2023-05-13 11:34 | disposition home or self-care (01) ==
PROVIDERS: Emergency Provider Nurse Practitioner Family
DX: N39.0 Urinary tract infection, site not specified (principal); B96.20 Unspecified Escherichia coli [E. coli] as the cause of diseases classified elsewhere; B35.1 Tinea unguium; Z86.16 Personal history of COVID-19
CPT/HCPCS: 81003; 87077; 87086; 87186; 99213; G0463

== ENCOUNTER 2023-07-06 15:06 | Emergency (ER) | payer OTHER, SELFPAY ==
--- NOTE | ~2023-07-06 | XR_ITS ---
EXAMINATION: XR chest 2V DATE: 07/06/2023 15:35 INDICATION: Chest pain. TECHNIQUE: Frontal and lateral views of the chest were obtained. COMPARISON: None. FINDINGS: There is no pneumonia, pleural effusion, or pneumothorax. The heart size is normal. IMPRESSION: 1. No acute cardiopulmonary disease. Reviewed, dictated and finalized at location E.
[2023-07-06 15:08] VITALS: BP 131/78; PULSE 106; RESP 18; TEMP 37.2; O2SAT 100
--- NOTE | 2023-07-06 15:13 | ECG_ITS ---
SEE SCANNED COPY FOR CONFIRMED REPORT MTDD
[2023-07-06 15:34] LABS: Basophils Percent Auto 0.5 % (0.2-1.2); Eosinophils Absolute Auto 0.4 K/mm3 (0-0.3); Eosinophils Percent Auto 5.4 % (0-4.4); Hematocrit 38.1 % (37.0-47.0); Immature Granulocyte Absolute 0.02 K/mm3 (0.00-0.031); Immature Granulocyte Percent A 0.2 % (0-0.5); Lymphocytes Absolute Auto 3.16 K/mm3 (0.9-3.2); Lymphocytes Percent Auto 38.8 % (18.3-44.2); Mean Corpuscular HGB Conc 34.1 g/dl (32-36); Mean Corpuscular Volume 84.9 fl (80-100); Mean Platelet Volume 10.4 fl (7.4-10.4); Monocytes Absolute Auto 0.7 K/mm3 (0.1-0.6); Monocytes Percent Auto 8.2 % (2.6-8.5); Neutrophils Absolute Auto 3.8 K/mm3 (1.3-6.7); Neutrophils Percent Auto 46.9 % (45.5-73.1); Platelet Count Result 328 k/mm3 (150-375); Red Blood Count 4.49 M/mm3 (4.2-5.4); Red Cell Distribution Width 13.1 % (11.5-14.5); White Blood Count 8.2 K/mm3 (4.5-10.0)
[2023-07-06 15:42] LABS: INR 0.9; Partial Thromboplastin Time 29.8 Seconds (22.3-36.8); Prothrombin Time 12.9 Seconds (11.1-14.7)
[2023-07-06 16:22] LABS: Alanine Aminotransferase 18 U/L (6-35); Albumin Level 4.6 g/dL (3.5-5.1); Alkaline Phosphatase 56 U/L (38-126); Anion Gap 10 mmol/L (4-12); Aspartate Amino Transferase 24 U/L (14-36); Bilirubin,Total 0.5 mg/dL (0.2-1.3); Blood Urea Nitrogen 11 mg/dL (7-17); Calcium 9.6 mg/dL (8.4-10.2); Carbon Dioxide 22 mmol/L (22-30); Chloride 107 mmol/L (98-107); Estimated CRCL calculation 109 ml/min; Estimated Glomerular Filt Rate > 60; Glucose 100 mg/dL (65-110); Lipase 136 U/L (23-300); Potassium 3.8 mmol/L (3.4-5.0); Sodium 139 mmol/L (137-145)
[2023-07-06 16:34] LABS: Troponin I < 0.012 ng/mL (0.000-0.034)
--- NOTE | 2023-07-06 16:39 | ED.CHESTPAIN ---
HPI - Chest Pain General Chief Complaint: Chest Pain Stated Complaint: CP Time Seen by Provider: 07/06/23 16:29 History of Present Illness HPI narrative: Patient is a 28-year-old female with history of anxiety here with chest pain. 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 She states that it radiated into her left side of her chest and was sharp and stabbing. She experienced ?a weird sensation? in her left arm at the same time. She notes that this seemed to make her feel quite anxious and after rest and the symptoms not resolving she presented to the emergency department for evaluation. She notes that now her chest pain is completely resolved. No prior cardiac history. No family history of early cardiac . No personal history of PE or DVT. She notes that the last month she suffered with a long postviral cough which seems to be improving at this time. Denies any shortness of breath. She denies any lower extremity pain, swelling, recent travel, recent surgeries. Related Data Allergies Allergy/AdvReac Type Severity Reaction Status Date / Time No Known Allergies Allergy Verified 07/06/23 16:43 Review of Systems Review of Systems: All systems reviewed & are unremarkable except as noted in HPI and below PMFSH Past Medical History Medical History Anxiety COVID-19 virus infection Cystic disease of liver Depression Tachycardia Surgical History Surgical History History of dilation and curettage (~05/2019) Suction D&C - missed AB History of hysteroscopy (~09/2019) D&C - endometrial polyp - irregular bleeding hscope D&C POC -02/16/2019 Family History Family History Sibling Asthma Grandparent Acute myocardial infarction Intracranial aneurysm Sibling Heart disease Mother Hypertension Mother No problems noted. Grandparent Kidney malignant neoplasm Non Hodgkin's lymphoma Sibling Klippel-Feil sequence Sibling Scoliosis of cervical spine Father No problems noted. Social History Social History Smoking status: Never smoker Alcohol intake: unknown Substance use: never Gender identity (if verbalized by the patient): Female Sexual Orientation (if Verbalized by the Patient): Straight or Heterosexual Spiritual care concerns: No Exam Narrative: GENERAL: Well-appearing, well-nourished, and in no acute distress. HEAD: Normocephalic, atraumatic. EYES: PERRLA and EOMI. ENT: Nares clear. Mucous membranes moist. NECK: Supple. CHEST: Clear to auscultation. No respiratory distress. HEART: Regular rate and rhythm. Normal peripheral pulses. ABDOMEN: Soft, nontender, nondistended. EXTREMITIES: Normal range of motion. No edema. No calf tenderness bilaterally. SKIN: Warm, dry, no rash. NEURO: No focal deficits. Alert and oriented x3. PSYCH: Normal mood and affect. Course Course Emergency Course: Chart review performed. Patient here with chest pain. 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 No cardiac history. Triage vitals show tachycardia, otherwise normal. Patient seen evaluated, nontoxic appearing. Awake, alert, and asymptomatic at this time. Initial workup unremarkable including a negative initial troponin and D-dimer. Pending repeat 3 hour troponin. Anticipate discharge. Patient agreeable to workup and plan. Repeat troponin negative. HEART score of 0. Will refer patient to PCP for further workup and testing. The results of pertinent diagnostic studies and exam findings were discussed. The patient?s provisional diagnosis and plan of care were discussed with the patient and present family. The patient and/or present family expressed understanding of the di
[2023-07-06 17:26] LABS: D Dimer 0.35 ug/mL (<0.48)
[2023-07-06 18:00] VITALS: BP 111/76; PULSE 85; RESP 15; O2SAT 98
[2023-07-06 18:15] VITALS: BP 105/74; PULSE 79; RESP 9; O2SAT 97
[2023-07-06 19:23] LABS: Troponin I < 0.012 ng/mL (0.000-0.034)
--- NOTE | 2023-07-06 19:24 | PC.NURSE ---
this rn assumed care of patient. this rn took patient report from NOHEMI Chowdhury.
[2023-07-06 19:30] VITALS: BP 116/78; PULSE 90; RESP 16; O2SAT 95
== END 2023-07-06 19:30 | disposition home or self-care (01) ==
PROVIDERS: Emergency Provider Student in an Organized Health Care Education/Training Program
DX: R07.89 Other chest pain (principal); Z86.16 Personal history of COVID-19
CPT/HCPCS: 36415; 71046; 80053; 81025; 83690; 84484; 85025; 85380; 85610; 85730; 93005; 99284

== ENCOUNTER 2023-10-07 12:44 | Emergency (ER) | payer OTHER, SELFPAY ==
[2023-10-07 13:00] VITALS: BP 107/60; PULSE 94; RESP 20; TEMP 36.8; O2SAT 100
--- NOTE | 2023-10-07 13:35 | ED.FEMALEGU ---
HPI - Female Genitourinary General Chief complaint: Urogenital-Female Stated complaint: poss uti Source: patient and RN notes reviewed Mode of arrival: ambulatory Limitations: no limitations History of Present Illness HPI Narrative: 28 y/o female presented for c/o burning with urination, frequency, and urgency along with mild lower abdominal pain. onset 2 days. increased her water intake. Last uti was in june. Denies hematuria, nausea, vomiting, abdominal pain, flank pain, constipation, diarrhea, fevers or chills. Related Data Allergies Allergy/AdvReac Type Severity Reaction Status Date / Time No Known Allergies Allergy Verified 10/07/23 13:13 Review of Systems Review of Systems: CONSTITUTIONAL: Denies body aches, fever, chills, or sweats. CARDIOVASCULAR: Denies chest pain, palpitations, or edema. RESPIRATORY: Denies cough or dyspnea. GASTROINTESTINAL: Denies abdominal pain, nausea, vomiting, or diarrhea. GENITOURINARY: Reports dysuria, frequency, urgency, Denies hematuria, flank pain SKIN: Denies rash, itching, or wounds. MUSCULOSKELETAL: Denies back pain or myalgia. [facility] Past Medical History Medical History Anxiety COVID-19 virus infection Cystic disease of liver Depression Tachycardia Surgical History Surgical History History of dilation and curettage (~05/2019) Suction D&C - missed AB History of hysteroscopy (~09/2019) D&C - endometrial polyp - irregular bleeding hscope D&C POC -02/16/2019 Family History Family History Sibling Asthma Grandparent Acute myocardial infarction Intracranial aneurysm Sibling Heart disease Mother Hypertension Mother No problems noted. Grandparent Kidney malignant neoplasm Non Hodgkin's lymphoma Sibling Klippel-Feil sequence Sibling Scoliosis of cervical spine Father No problems noted. Social History Social History Smoking status: Never smoker Alcohol intake: unknown Substance use: never Gender identity (if verbalized by the patient): Female Sexual Orientation (if Verbalized by the Patient): Straight or Heterosexual Spiritual care concerns: No Comments At time of signature, I have reviewed and agree with nursing past medical, surgical, social and family history unless otherwise noted. Please see nursing chart for further information. There is no relevant family history pertinent to the presenting complaint Exam Narrative: GENERAL: Well-appearing and in no acute distress. ENT: Mucous membranes pink and moist. NECK: Normal AROM. Supple. CHEST: No respiratory distress. Clear to auscultation. HEART: Regular rate and rhythm. ABDOMEN: Soft, nontender, nondistended, normal active bowel sounds. No CVA tenderness SKIN: Warm, dry, no rash. NEURO: No focal deficits. Alert and oriented x3. Gait steady. PSYCH: Normal affect. Course Course Emergency Course: Patient is aware of diagnosis, understands and agrees to treatment plan. Anticipatory guidance given. Patient agrees to follow-up as directed and is aware of reasons to seek care at the emergency department. Portions of this record may have been created with voice recognition software Level of Care: Express Care Visit Vital Signs Vital signs: Vital Signs Temperature 98.2 F 10/07/23 13:00 Pulse Rate 94 10/07/23 13:00 Respiratory Rate 20 10/07/23 13:00 Blood Pressure 107/60 10/07/23 13:00 Pulse Oximetry 100 10/07/23 13:00 Temperature 98.2 F 10/07/23 13:00 Pulse Rate 94 10/07/23 13:00 Respiratory Rate 20 10/07/23 13:00 Blood Pressure 107/60 10/07/23 13:00 Pulse Oximetry 100 10/07/23 13:00 Reviewed MDM - Female Genitourinary MDM Narrative Medical decision making narrative: Discussed phys
[2023-10-07 13:56] LABS: EDUAAPPEAR Cloudy; EDUABILI Negative; EDUABLOOD 1+; EDUACOLOR1 Yellow; EDUAGLUCOSE Negative; EDUAKETONE Negative; EDUALEUKO 1+; EDUANITRATE Negative; EDUAPROTEIN Negative; EDUAUROBILI 0.2
== END 2023-10-07 13:45 | disposition home or self-care (01) ==
PROVIDERS: Emergency Provider Nurse Practitioner Family
DX: R30.0 Dysuria (principal); Q44.6 Cystic disease of liver; Z86.16 Personal history of COVID-19
CPT/HCPCS: 81003; 87086; 99213; G0463

== ENCOUNTER 2024-02-08 11:49 | Emergency (ER) | payer OTHER, SELFPAY ==
[2024-02-08 11:58] VITALS: BP 115/72; PULSE 71; RESP 16; TEMP 36.8; O2SAT 100
--- NOTE | 2024-02-08 13:54 | ED.EYEPROB ---
HPI - Eye Problem General Chief complaint: Eye Problems Stated complaint: right eye injury Time Seen by Provider: 02/08/24 12:17 History of Present Illness HPI Narrative: patient is a 28-year-old female who presents ER with right eye pain. She is trying to take a drink out of her beverage yesterday when the straw poked her in the eye. She was able to work with mild discomfort. Upon waking up this morning she has had photophobia and increased pain. Has difficulty opening her eye. No flashers or floaters. No drainage. Related Data Allergies Allergy/AdvReac Type Severity Reaction Status Date / Time No Known Allergies Allergy Verified 02/08/24 11:52 Review of Systems Constitutional: Constitutional: Reports no additional constitutional complaints Eyes: Eyes: Denies change in vision and Reports photophobia Comments: eye pain PMFSH Past Medical History Medical History Anxiety COVID-19 virus infection Cystic disease of liver Depression Tachycardia Surgical History Surgical History History of dilation and curettage (~05/2019) Suction D&C - missed AB History of hysteroscopy (~09/2019) D&C - endometrial polyp - irregular bleeding hscope D&C POC -02/16/2019 Family History Family History Sibling Asthma Grandparent Acute myocardial infarction Intracranial aneurysm Sibling Heart disease Mother Hypertension Mother No problems noted. Grandparent Kidney malignant neoplasm Non Hodgkin's lymphoma Sibling Klippel-Feil sequence Sibling Scoliosis of cervical spine Father No problems noted. Social History Social History Smoking status: Never smoker Alcohol intake: unknown Substance use: never Gender identity (if verbalized by the patient): Female Sexual Orientation (if Verbalized by the Patient): Straight or Heterosexual Spiritual care concerns: No Exam Narrative: GENERAL: Well-appearing, well-nourished, and in no acute distress. HEAD: Normocephalic, atraumatic. EYES: PERRLA and EOMI. Right scleral injection. Corneal abrasion at the 7 o'clock position with fluorescein staining. ENT: Mucous membranes moist. NEURO: Alert and oriented x3. PSYCH: Normal mood and affect. Course Course Emergency Course: Topical antibiotics and pain medication. Discharge home. Vital Signs Vital signs: Vital Signs Temperature 98.3 F 02/08/24 11:58 Pulse Rate 71 02/08/24 11:58 Respiratory Rate 16 02/08/24 11:58 Blood Pressure 115/72 02/08/24 11:58 Pulse Oximetry 100 02/08/24 11:58 Oxygen Delivery Room Air 02/08/24 11:58 Temperature 98.3 F 02/08/24 11:58 Pulse Rate 71 02/08/24 11:58 Respiratory Rate 16 02/08/24 11:58 Blood Pressure 115/72 02/08/24 11:58 Pulse Oximetry 100 02/08/24 11:58 Oxygen Delivery Room Air 02/08/24 11:58 Discharge Plan Discharge Clinical Impression: Corneal abrasion Patient Disposition: Home, Self-Care Condition: Stable Instructions: Antibiotic Form, Corneal Abrasion (ED) Additional Instructions: Return the ER if you have worsening pain in your eye, he cannot see, or you have thick discharge. 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
[2024-02-08 14:20] VITALS: BP 117/78; PULSE 84; RESP 16; O2SAT 100
== END 2024-02-08 14:22 | disposition home or self-care (01) ==
PROVIDERS: Emergency Provider Emergency Medicine
DX: S05.01XA Injury of conjunctiva and corneal abrasion without foreign body, right eye, initial encounter (principal); Q44.6 Cystic disease of liver; Z86.16 Personal history of COVID-19; W22.8XXA Striking against or struck by other objects, initial encounter
CPT/HCPCS: 99283

== ENCOUNTER 2024-09-24 13:14 | Outpatient (CLI) | payer OTHER, SELFPAY ==
--- OUTSIDE RECORDS SUMMARY | 2024-09-24 13:24 | XMS_ITS | Clinical Summary ---
Author Organization [facility] [employer] Address [address] [place] [address] Care Team Providers Care Contact Person Name Role Phone Unavailable Primary Care Provider Unavailabl e Source Comments [facility] [employer],non-owned Affiliates and Associated Physician Practices is amultiple site organization consisting of ambulatory clinics and hospital sitesin [place], [place], [place] and [place]. This disclosure is being madepursuant to the Care Everywhere program and may not contain all information available regarding this patient. Last updated 17.[employer] Allergies No known active allergies Medications * Be aware that medications may not be up to date on this document. Alwaysverify current medications with the patient. 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 Gender Identity Female Sexual Orientation Not on file Last Filed Vital Signs Vital Sign Reading Time Taken Comments Blood Pressure 100/58 09/13/2020 4:10 PM CDT Pulse 82 09/13/2020 4:10 PM CDT Temperature 36.7 C (98.1 F) 09/13/2020 4:10 PM CDT Respiratory Rate 17 09/13/2020 4:10 PM CDT Oxygen Saturation 98% 09/13/2020 4:10 PM CDT Inhaled Oxygen Concentration - - Weight 65.8 kg (145 lb) 09/13/2020 4:10 PM CDT Height 157.5 cm (5' 2) 09/13/2020 4:10 PM CDT Body Mass Index 26.52 09/13/2020 4:10 PM CDT Plan of Treatment Health Maintenance Due Date Last Done Comments HIV SCREENING 2010 HEPATITIS C SCREENING 05/05/2013 HEPATITIS B VACCINE (1 of 3 - 19+ 3-dose series) 2014 COVID-19 VACCINE ( - 2023-2 5 season) 2023 DEPRESSION SCREENING 03/25/2024 INFLUENZA VACCINE (Season Ended) 2024 DTAP/TDAP/TD VACCINES (2 - T d or Tdap) 06/07/2029 06/08/2019 ZOSTER VACCINE (1 of 2) 2045 HIB VACCINE Aged Out No longer eligi ble based on patient's age to complete this topic HPV VACCINE Aged Out No longer eligi ble based on patient's age to complete this topic MENINGOCOCCAL (Group B) VACC INE SHARED DECISION-MAKING Aged Out No longer eligibl e based on patient's age to complete this topic MENINGOCOCCAL GROUPS A/C/Y/W VACCINE Aged Out No longer eligible b ased on patient's age to complete this topic PNEUMOCOCCAL VACCINE Aged Out No long er eligible based on patient's age to complete this topic Insurance [facility]
[2024-09-24 13:59] LABS: Hematocrit 33.1 % (37.0-47.0); Hemoglobin 11.0 g/dL (12.0-15.0); Immature Granulocyte Percent A 0.3 % (0-0.5); Lymphocytes Absolute Auto 1.99 K/mm3 (0.9-3.2); Mean Corpuscular HGB Conc 33.2 g/dl (32-36); Mean Corpuscular Hemoglobin 28.6 pg (26-34); Mean Corpuscular Volume 86.2 fl (80-100); Nucleated Red Blood Cells Absolute Auto 0.000 K/mm3 (0.0-0.012); Nucleated Red Blood Cells Perc 0.0 % (0.0-0.2); Platelet Count Result 272 k/mm3 (150-375); Red Blood Count 3.84 M/mm3 (4.2-5.4); White Blood Count 7.6 K/mm3 (4.5-10.0)
[2024-09-24 14:43] LABS: Syphilis IgG/IgM Antibody Non-Reactive (Nonreactive)
[2024-09-24 14:51] LABS: Hepatitis B Surface Antigen Negative (Negative)
[2024-09-24 14:55] LABS: HIV 1/2 Ab P24 Ag Result Negative (Negative)
[2024-09-24 14:56] LABS: Beta HCG Quantitative 63689.00 mIU/ML
[2024-09-28 16:33] LABS: CMV IgG Antibody. 2.30 U/mL
== END 2024-09-24 13:15 | disposition home or self-care (01) ==
LOC: ANHLAB 13:19
PROVIDERS: Visit Provider Obstetrics & Gynecology
DX: N91.2 Amenorrhea, unspecified (principal)
CPT/HCPCS: 36415; 84702; 85025; 86593; 86644; 86703; 86747; 86762; 86787; 86850; 86900; 86901; 87086; 87340; G0432

== ENCOUNTER 2025-01-28 17:28 | Emergency (ER) | payer OTHER, SELFPAY ==
--- NOTE | 2025-01-28 17:36 | ED.URI ---
HPI - URI/Sore Throat General Chief Complaint: Upper Respiratory Infection Stated Complaint: Cough / sore throat Time Seen by Provider: 01/28/25 17:45 Source: patient, RN notes reviewed and old records reviewed Mode of arrival: ambulatory Limitations: no limitations History of Present Illness HPI Narrative: 29-year-old female presents to the [facility] with complaints of a sore throat since Saturday, 3 days, cough started on Saturday 2 days ago. Noticed that she has had increased drainage today. States she is approximately 33 weeks , has been drinking tea with honey. Treatments prior to arrival: other Related Data Home Medications ?Medication ?Instructions ?Recorded ?Confirmed ?Last Taken ?Type docosahexaenoic acid 200 mg mg PO 08/12/24 01/25/25 Unknown History capsule ( DHA) ferrous sulfate 325 mg (65 mg 325 mg PO DAILY 01/25/25 01/25/25 Unknown History iron) tablet Allergies Allergy/AdvReac Type Severity Reaction Status Date / Time No Known Allergies Allergy Verified 01/28/25 17:42 Review of Systems Review of Systems: All systems reviewed & are unremarkable except as noted in HPI and below Constitutional: Constitutional: Reports no additional constitutional complaints ENT: Reports as per HPI, Reports nasal discharge and Reports sore throat Cardiovascular: Cardiovascular: Reports no additional cardiovascular complaints, Denies chest pain and Denies dyspnea Respiratory: Respiratory: Reports as per HPI, Denies chest congestion, Reports cough and Denies dyspnea Musculoskeletal: Musculoskeletal: Reports no additional musculoskeletal complaints Integumentary/Breasts: Skin/Breast: Reports system reviewed and no additional complaints, except as docu PMFSH Past Medical History Medical History COVID-19 virus infection Tachycardia Cystic disease of liver Depression Anxiety Surgical History Surgical History History of dilation and curettage (~05/2019) Suction D&C - missed AB History of hysteroscopy (~09/2019) D&C - endometrial polyp - irregular bleeding hscope D&C POC -02/16/2019 Family History Family History Sibling Asthma Grandparent Acute myocardial infarction Intracranial aneurysm Sibling Heart disease Mother Hypertension Mother No problems noted. Grandparent Kidney malignant neoplasm Non Hodgkin's lymphoma Sibling Klippel-Feil sequence Sibling Scoliosis of cervical spine Father No problems noted. Social History Social History Alcohol intake: never Substance use: never Substance use type: does not use Do You Feel Safe in your Home?: Yes Lack of Transportation: No Lack of Food: Never True Current Housing: Decline to Answer Concerned About Future Housing: Decline to Answer Difficulty Paying Gas/Electric Bills: Decline to Answer Difficulty Paying for Meds: Decline to Answer Currently Unemployed: Decline to Answer Education: Decline to Answer Difficulty w/ Childcare or Family Care: Decline to Answer Living arrangements: with family Additional living arrangements comments: Occupation/Education: occupation Additional occupation/education comments: [employer] Gender identity (if verbalized by the patient): Female Sexual Orientation (if Verbalized by the Patient): Straight or Heterosexual Spiritual care concerns: No Comments At the time of my signature, I reviewed and agree with the nursing past medical, surgical, social, and family history. There is no relevant family history pertinent to the patient complaint. Exam Const: General: cooperative, healthy appearing, comfortable, no acute distress, well developed, alert and well nourished Nutritional Appearance: well nourished Orientation/consciousness: patient oriented x3 Limitations: no limitations HENMT: Head: normal to inspection Ears: hearing grossly normal bilaterally, external ears normal, TM's normal bilaterally, EAC's normal, mastoids normal and no periauricular adenopathy Face and sinus: normal facial exam, sinuses nontender and face symmetric Mouth: Yes Normal oral and palatal mucosa present, Yes lip normal, Yes tongue normal and Yes moist mucous membranes Throat: posterior oropharynx normal, uvula midline, postnasal drainage and no uvular edema Eyes: General: appearance normal, both eyes and all related structures Alignment and Position: alignment normal Neck: Neck: normal visual inspection, full ROM, no lymphadenopathy and no meningeal signs Chest: Chest palpation & inspection: normal inspection of the chest Resp: Effort & Inspection: normal respiratory effort and able to speak in complete sentences Auscultation: clear to auscultation bilaterally, no crackles, no rales, no rhonchi and no wheezes Cardio: Rate: regular rate Skin: General skin exam: normal color and no rashes or lesions noted Neuro: General: patient oriented x3, gait normal, moves all extremities and no meningeal signs Cognition (Neuro): normal cognition Speech: normal speech Gait exam (Neuro): Normal gait present Extrem: General: normal to inspection, full ROM, capillary refill normal and normal gait Psych: Appearance: grossly normal and well kempt Mental Status: mental status grossly normal Speech and movement: Normal speech and movement present and Clear speech present Affect: normal affect Attitude: cooperative Course Course Level of Care: Express Care Visit Vital Signs Vital signs: Vital Signs Temperature 97.9 F 01/28/25 17:43 Pulse Rate 103 H 01/28/25 17:43 Respiratory Rate 20 01/28/25 17:43 Blood Pressure 123/74 01/28/25 17:43 Pulse Oximetry 100 01/28/25 17:43 Oxygen Delivery Room Air 01/28/25 17:43 Temperature 97.9 F 01/28/25 17:43 Pulse Rate 103 H 01/28/25 17:43 Respiratory Rate 20 01/28/25 17:43 Blood Pressure 123/74 01/28/25 17:43 Pulse Oximetry 100 01/28/25 17:43 Oxygen Delivery Room Air 01/28/25 17:43 Reviewed MDM - URI/Sore Throat MDM Narrative Medical decision making narrative: Patient sitting comfortably in exam room. Patient with sore throat, cough, drainage Patient's strep test is positive Patient is appropriate for outpatient treatment with antibiotics, amoxicillin and close follow-up Discussed if she starts having abdominal pain, proceeding to Labor and delivery. Discharge instructions reviewed with patient, as well as provided in writing per nursing staff. The instructions also include specific and strict return/GO TO THE ER as well as f/u information. All questions have been answered, and the patient deny any further questions with discharge and discharge plan. Some parts of this dictation were generated by voice recognition software and may contain typographical and/or grammatical inaccuracies. Differential Diagnosis Differential diagnosis: Likely upper respiratory infection, otitis media, sinusitis, viral infection, bronchitis, influenza and pharyngitis Lab Data Labs: Lab Results 01/28/25 01/28/25 Range/Units 17:57 17:58 POC Influenza A Ag Negative (Negative) POC Influenza B Ag Negative (Negative) POC SARS CoV-2 Ag Negative (Negative) POC Grp A Strep Screen Positive (Negative) Reviewed Critical Care Time Critical Care Time Critical Care Time: No Discharge Plan Discharge Clinical Impression: Strep pharyngitis Patient Disposition: Home Condition: Stable Instructions: Strep Throat (DC) Additional Instructions: After 24-48 hours on antibiotics, Throw the toothbrush away, start using a new one. Please be sure to wash bed linens especially pillow cases. Repeat once you finish the antibiotics. Do not share drinks. Take Tylenol for pain and fever Increase fluids, avoid caffeine. Give plenty of water, juice, Gatorade, Pedialyte, ice pops in Jell-O Follow up with Primary provider if not getting better this week For new or worsening symptoms go directly to the emergency room Patient Language: Kiswahili Prescriptions: New amoxicillin 500 mg tablet 500 mg PO Q12H Qty: 20 0RF No Action DHA 200 mg capsule PO ferrous sulfate 325 mg (65 mg iron) tablet 325 mg PO DAILY Abrysvo (PF) 120 mcg/0.5 mL recon soln 0.5 ml IM ONCE Qty: 1 0RF Rx Instructions: as a single dose Follow-up/Referrals: PHYSICIAN,INTENSIVE CARE AMBULANCE PARAMEDIC [Primary Care Provider, Internal Medicine] Stand Alone Forms: Work/School Release IP Time of Disposition: 17:53
[2025-01-28 17:43] VITALS: BP 123/74; PULSE 103; RESP 20; TEMP 36.6; O2SAT 100
[2025-01-28 18:00] LABS: EDCOVIDSCREEN Negative (Negative); EDINFLUASCREEN Negative (Negative); EDINFLUBSCREEN Negative (Negative)
[2025-01-28 18:00] LABS: EDSTREPNEGPOS1 Positive (Negative)
--- OUTSIDE RECORDS SUMMARY | 2025-01-28 21:11 | XMS_ITS | Clinical Summary ---
Author Organization [facility] Address [address] [place] [address] Care Team Providers Care Director [facility] Name Role Phone Unavailable Primary Care Provider Unavailabl e Source Comments [facility],non-owned Affiliates and Associated Physician Practices is amultiple site organization consisting of ambulatory clinics and hospital sitesin [place], [place], [place] and [place]. This disclosure is being madepursuant to the Care Everywhere program and may not contain all information available regarding this patient. 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
== END 2025-01-28 17:59 | disposition home or self-care (01) ==
PROVIDERS: Emergency Provider Nurse Practitioner
DX: J02.0 Streptococcal pharyngitis (principal); Z20.822 Contact with and (suspected) exposure to COVID-19
CPT/HCPCS: 87426; 87804; 87880; 99213; G0463

== ENCOUNTER 2025-03-04 15:03 | Observation (INO) | payer OTHER, SELFPAY ==
--- NOTE | 2025-03-04 15:08 | OBADM ---
This patient, Kassy Brooke, admitted to the OB room Labor/Delivery/Recovery 105 for observation. Patient/family oriented to hospital policies and general routines including ID bracelet, bed and alarms, visiting hours, pain management, procedures, bathroom and other care routines, personal items, smoking policy, room service/diet, and visiting hours. Patient/Family are encouraged to report perceived risks to care and to ask questions if they do not understand what they are told or what they should do.
[2025-03-04 18:47] VITALS: BMI 33.3
--- OUTSIDE RECORDS SUMMARY | 2025-03-04 19:35 | XMS_ITS | Clinical Summary ---
Author Organization [facility] Address [address] [place] [address] Care Team Providers Care Skirt Maker Name Role Phone Unavailable Primary Care Provider Unavailabl e Source Comments [facility],non-owned Affiliates and Associated Physician Practices is amultiple site organization consisting of ambulatory clinics and hospital sitesin [place], [place], [place] and [place]. This disclosure is being madepursuant to the Care Everywhere program and may not contain all information available regarding this patient. Last updated [employer] Allergies No known active allergies Medications * [...] on file Legal Sex Female 4:59 AM SHANK TAPPER Gender Identity Female Sexual Orientation Not on [...] DEPRESSION SCREENING 03/25/2024 COVID-19 VACCINE (1 - 2024-2 6 season) 2024 INFLUENZA VACCINE (#1) 2024 DTAP/TDAP/TD [...] age to complete this topic Insurance [facility]
--- OUTSIDE RECORDS SUMMARY | 2025-03-04 19:35 | XMS_ITS | Clinical Summary ---
Author Organization [employer] [facility] Address [address] [place] [address] Care Team Providers Care Spinner Tender Name Role Phone No, Pcp MID LEVEL CLINICIAN Primary Care Provider Unavailabl e Social History Tobacco Use Types Packs/Day Years Used Date Smoking Tobacco: Never Assessed Comments Unknown Sex and Gender Information Value Date Recorded Sex Assigned at Not on file Legal Sex Female 4:13 PM EST Gender Identity Not on file Sexual Orientation Not on file Plan of Treatment Not on file Medical Devices Not on file Insurance [facility] Care Teams Spinner Tender Relationship Specialty Start Date End Date No, Pcp, MID LEVEL CLINICIAN N/A Do not use PCP - General Family Medicine 02/04/20
--- NOTE | 2025-03-31 09:11 | PM.OBTRLD ---
OB - Triage/Final Diagnosis Visit Information Comments/Additional reasons for admission: I have assessed the risk for this patient, Kassy Brooke, and determined that she would benefit from observation care. Final Diagnosis (1) False labor: Code(s): O47.9 - False labor, unspecified Status: Acute
== END 2025-03-04 19:00 | disposition home or self-care (01) ==
PROVIDERS: Admitting Provider Student in an Organized Health Care Education/Training Program; Visit Provider Obstetrics & Gynecology
DX: O47.1 False labor at or after 37 completed weeks of gestation (principal); Z3A.38 38 weeks gestation of pregnancy
CPT/HCPCS: G0378; G0379

== ENCOUNTER 2025-03-13 09:04 | Inpatient (IN) | payer OTHER, SELFPAY ==
[2025-03-13] VITALS (66 sets, daily range): BP systolic 101–131; BP diastolic 45–81; PULSE 25–107; RESP 16; TEMP 36.6–37; O2SAT 78–100; BMI 34.2
[2025-03-13 10:39] LABS: Hematocrit 28.0 % (37.0-47.0); Hemoglobin 9.0 g/dL (12.0-15.0); Immature Granulocyte Percent A 0.5 % (0-0.5); Lymphocytes Absolute Auto 1.32 K/mm3 (0.9-3.2); Mean Corpuscular HGB Conc 32.1 g/dl (32-36); Mean Corpuscular Hemoglobin 25.6 pg (26-34); Mean Corpuscular Volume 79.5 fl (80-100); Nucleated Red Blood Cells Absolute Auto 0.000 K/mm3 (0.0-0.012); Nucleated Red Blood Cells Perc 0.0 % (0.0-0.2); Platelet Count Result 197 k/mm3 (150-375); Red Blood Count 3.52 M/mm3 (4.2-5.4); White Blood Count 5.9 K/mm3 (4.5-10.0)
[2025-03-13] MEDS: LACTATED RINGERS 1,000 ML 999 ML IV CONT (10:43)
[2025-03-13 11:26] LABS: Syphilis IgG/IgM Antibody Non-Reactive (Nonreactive)
[2025-03-13] MEDS: LACTATED RINGERS 1,000 ML 125 ML IV CONT (11:48)
--- NOTE | 2025-03-13 12:34 | P.HP_ITS ---
H&P: HPI History of Present Illness Date/Time: 03/13/25 12:34 Chief Complaint: Contractions Narrative: 29 y/o at 39 5/7 weeks here with contractions. Cervix was 5 cm at time of admission. GBS neg. H/o LGA baby. EFW 6#7oz about 4 weeks ago. Review of Systems Review of Systems: All systems reviewed & are unremarkable except as noted in HPI and below PMFSH Past Medical History Medical History COVID-19 virus infection Tachycardia Cystic disease of liver Depression Anxiety Surgical History Surgical History History of dilation and curettage (~05/2019) Suction D&C - missed AB History of hysteroscopy (~09/2019) D&C - endometrial polyp - irregular bleeding hscope D&C POC -02/16/2019 Family History Family History Sibling Asthma Grandparent Acute myocardial infarction Intracranial aneurysm Sibling Heart disease Mother Hypertension Mother No problems noted. Grandparent Kidney malignant neoplasm Non Hodgkin's lymphoma Sibling Klippel-Feil sequence Sibling Scoliosis of cervical spine Father No problems noted. Social History Social History Smoking status: Never smoker Alcohol intake: never Substance use: never Substance use type: does not use Lack of Transportation: No Lack of Food: Never True Current Housing: I Have Housing Concerned About Future Housing: No Difficulty Paying Gas/Electric Bills: No Difficulty Paying for Meds: No Currently Unemployed: No Education: Associate Degree Difficulty w/ Childcare or Family Care: No Living arrangements: with family Additional living arrangements comments: Occupation/Education: occupation Additional occupation/education comments: [employer] Gender identity (if verbalized by the patient): Female Sexual Orientation (if Verbalized by the Patient): Straight or Heterosexual Spiritual care concerns: No Meds Home Medications and Allergies Home Medications ?Medication ?Instructions ?Recorded ?Confirmed ?Type docosahexaenoic acid 200 mg mg PO 08/12/24 03/09/25 Hi story capsule ( DHA) ferrous sulfate 325 mg (65 mg 325 mg PO DAILY 01/25/25 03/09/25 History iron) tablet escitalopram oxalate 5 mg tablet 5 mg PO DAILY #60 tab s 02/22/25 03/09/25 Rx (Lexapro) Allergies Allergy/AdvReac Type Severity Reaction Status Date / Time No Known Allergies Allergy Verified 03/09/25 10:46 Vital Signs Vital Signs - 24 hr 03/13/25 10:46 03/13/25 10:51 03/13/25 10:56 Pulse Rate 91 Blood Pressure 118/66 Pulse Oximetry 98 100 100 03/13/25 11:00 03/13/25 11:01 03/13/25 11:06 Pulse Rate 86 Blood Pressure 116/69 Pulse Oximetry 100 100 03/13/25 11:11 03/13/25 11:16 03/13/25 11:21 Pulse Rate Blood Pressure Pulse Oximetry 100 100 100 03/13/25 11:26 03/13/25 11:33 03/13/25 11:35 Pulse Rate 96 88 Blood Pressure 109/71 125/67 Pulse Oximetry 100 100 03/13/25 11:37 03/13/25 11:38 03/13/25 11:41 Pulse Rate 95 Blood Pressure 123/75 Pulse Oximetry 100 100 03/13/25 11:42 03/13/25 11:43 03/13/25 11:45 Pulse Rate 82 82 86 Blood Pressure 107/62 108/64 106/59 L Pulse Oximetry 03/13/25 11:46 03/13/25 11:47 03/13/25 11:50 Pulse Rate 80 Blood Pressure 109/59 L Pulse Oximetry 100 100 03/13/25 11:50 03/13/25 11:50 03/13/25 11:50 Pulse Rate 87 Blood Pressure 101/65 Pulse Oximetry 100 03/13/25 11:52 03/13/25 11:55 03/13/25 12:00 Pulse Rate 74 79 79 Blood Pressure 112/56 L 115/49 L 113/61 Pulse Oximetry 100 100 03/13/25 12:05 03/13/25 12:10 03/13/25 12:15 Pulse Rate 79 96 80 Blood Pressure 116/61 117/72 118/63 Pulse Oximetry 100 98 100 03/13/25 12:20 03/13/25 12:25 03/13/25 12:30 Pulse Rate 91 81 87 Blood Pressure 118/75 113/69 128/63 Pulse Oximetry Exam Const: Other: Well-developed, well-nourished female in no acute distress. Neck: Other: Neck: Trachea midline, no thyromegaly or masses. Resp: Other: Lungs: Normal respiratory effort. Clear to auscultation bilaterally. Cardio: Other: Heart: Regular rate and rhythm with normal S1-S2. GI: Other: ABD: Soft, nontender, nondistended, gravid. No guarding or rebound tenderness. No hepatosplenomegaly. NST reactive. TOCO: contractions every 4-5 min. : Other: Cervix: 6/90/-2. AROM with copious, meconium-stained fluid. IUPC placed. Vertex. Back/Spine/Pelvis: Other: Back: No CVA tenderness. Skin: Other: Skin: No lesions, rashes or ulcers noted. Extrem: Other: Extremities: nontender with no edema Psych: Other: Mental status grossly normal, with normal mood and affect. Results Labs Labs: Short CBC 03/13/ Range/Units 10:28 WBC 5.9 (4.5-10.0) K/mm3 Hgb 9.0 L (12.0-15.0) g/dL Hct 28.0 L (37.0-47.0) % Plt Count 197 (150-375) k/mm3 Assessment and Plan Assessment and plan (1) : Qualifiers: Weeks of gestation: 39 weeks Qualified Code(s): Z3A.39 - 39 weeks gestation of Code(s): Z34.90 - Encounter for supervision of normal , unspecified, unspecified trimester Status: Acute Assessment and Plan: A: IUP at 39 5/7 weeks with labor. EFW about 8.5lbs by US. P: Anticipate . Peds aware of meconium. (2) Active labor at term: Status: Acute
--- NOTE | 2025-03-13 14:41 | P.PCNOB_ITS ---
OB - Vaginal Delivery Note Procedure Delivery date: 03/13/25 Delivery augmentation: Rupture of Membranes Delivery monitor: External FHT, External Uterine and Internal Uterine Route of delivery: Episiotomy description: None Laceration Description: Perineal - 1st Degree Delivery repair: vicryl (3-0 Vicryl) Specimen: Yes (Cord blood) Quantitative Blood Loss (ml): 150 Anesthesia type: Epidural Disposition: PACU Complications: None Narrative: 29 y/o at 39 5/7 weeks who presented with contractions. Labor was diagnosed. She received an epidural for pain control. Amniotomy was performed with return of meconium-stained fluid. Her labor progressed without further stimulation, and her cervix dilated completely. She pushed with good effort and over only two pushes delivered the infant's head to the perineum, followed by the body. The nose and mouth were bulb suctioned. After a delay, the cord was clamped and cut. The was handed off the field. Cord blood was collected. The placenta delivered spontaneously and was grossly normal in appearance. The usual 3 vessel cord was noted. A first degree midline perineal laceration was sustained. This was reapproximated using 3 0 Vicryl in the usual layered fashion. Excellent hemostasis resulted as did excellent reapproximation of the normal anatomy. Needle and instrument counts were correct. The patient was taken to recovery room in stable condition. The went to the nursery in stable condition. I was present and scrubbed for the entire delivery. [place] Baby Date of : 03/13/25 Time of : 14:24 Gestational Age by Date: 39 gender: Male Weight (pounds): 9 Weight (ounces): 7 presentation: vertex position: Left Occiput Anterior Placenta delivery description: Spontaneous and Normal Configuration Cord Vessel Description: 3 Vessels and Delayed Cord Clamping score one minute: 8 score five minutes: 9
--- NOTE | 2025-03-13 14:44 | PM.OBDSVD ---
DS: Admitting Diagnosis Admitting Diagnosis IUP at 39 5/7 Labor DS: Discharge Diagnosis Discharge Diagnosis (1) Normal vaginal delivery: Code(s): O80 - Encounter for full-term uncomplicated delivery Status: Acute OB - DS: Summary OB Procedures : None OB Procedures Intrapartum: Spontaneous Vag Delivery OB Procedures: : None Peripartum Data Laceration Description: Perineal - 1st Degree Episiotomy description: None Time Spent with Patient Time attestation: Total time spent providing and/or coordinating discharge services: DS: Data Data Completed and Pending Labs on day of discharge: Labs from last 24 hours 03/13/25 10:28 WBC 5.9 RBC 3.52 L Hgb 9.0 L Hct 28.0 L MCV 79.5 L MCH 25.6 L MCHC 32.1 RDW 14.1 Plt Count 197 MPV 10.3 Immature Gran % (Auto) 0.5 Neut % (Auto) 69.4 Lymph % (Auto) 22.3 [place] % (Auto) 6.4 Eos % (Auto) 1.2 Baso % (Auto) 0.2 Lymph # (Auto) 1.32 [place] # (Auto) 0.4 Eos # (Auto) 0.1 Baso # (Auto) 0.0 Abs Immat Gran (auto) 0.03 Absolute Neuts (auto) 4.1 Absolute Nucleated RBC 0.000 Nucleated RBC % 0.0 Syphilis IgG/IgM Ab Non-reactive Blood Type A Negative Antibody Screen Positive Antibody Identification Pending Antigen Identification Cancelled MARIA ESTHER, IgG Interpret Pending MARIA ESTHER, Poly Interpret Pending MARIA ESTHER, Complement Interp Pending Discharge Plan Discharge Attending physician on discharge: Damian Mitchell Discharging Clinician: Damian Mitchell Patient Disposition: Home Activity: pelvic rest Diet: regular Discharge Instructions: Call or return if temperature above 100.4? F, increased abdominal pain, increased vaginal bleeding or any new problems. Patient Language: French Stand Alone Forms: General Discharge Information Follow-up/Referrals: Damian Mitchell MD [Physician, G[employer] METER INSTALLER HELPER] - Call for Appointment Discharge Medications: New ibuprofen 600 mg tablet 600 mg PO Q6H PRN (Reason: cramps) Qty: 30 0RF Continued DHA 200 mg capsule PO ferrous sulfate 325 mg (65 mg iron) tablet 325 mg PO DAILY escitalopram oxalate [Lexapro] 5 mg tablet 5 mg PO DAILY Qty: 60 0RF Date of admission: 03/13/25 09:04 Primary Care Provider: UNKNOWN,DOCTOR Admitting Provider: Damian Mitchell Attending physician on admission: Damian Mitchell Condition: Stable
--- NOTE | 2025-03-13 17:18 | LDADM ---
This patient, Kassy Brooke, was admitted to Labor/Delivery/Recovery 105 on 03/13/25 at 09:04. Plans for labor, pain management and were discussed with patient. Patient/family oriented to hospital policies and general routines including ID bracelet, bed and alarms, visiting hours, pain management, procedures, bathroom and other care routines, personal items, smoking policy, room service/diet and guest tray routines, infant security routines, and visiting hours. Patient/Family are encouraged to report perceived risks to care and to ask questions if they do not understand what they are told or what they should do. See OBIX for further documentation.
[2025-03-13] MEDS: WITCH HAZEL 40 PADS 1 PAD TOPICAL (17:34)
[2025-03-13] MEDS: BENZOCAINE 20% AER SPR (*SP) 56 GM CAN 1 SPRAY TOPICAL (17:34)
--- NOTE | 2025-03-13 17:57 | PC.NURSE ---
Patient expressed past experiences with post anxiety, depression, and rage. MD notified at 1725. Orders received, see MAR. Educated patient and spouse on the signs and symptoms of anxiety and depression. Spouse reported he was familiar as she had gone through it before. Reported this to post RN.
[2025-03-13] MEDS: IBUPROFEN 600 MG TABLET PO (19:56)
[2025-03-13] MEDS: DOCUSATE SODIUM 100 MG CAPSULE PO (20:54)
[2025-03-14 04:35] VITALS: BP 115/79; PULSE 66; RESP 16; TEMP 36.5; O2SAT 100
[2025-03-14 05:43] LABS: Hematocrit 28.9 % (37.0-47.0); Hemoglobin 9.3 g/dL (12.0-15.0)
[2025-03-14 09:00] VITALS: BP 113/77; PULSE 72; RESP 18; TEMP 36.9
[2025-03-14] MEDS: DOCUSATE SODIUM 100 MG CAPSULE PO ×2 (09:03→16:51)
[2025-03-14] MEDS: IBUPROFEN 600 MG TABLET PO ×2 (09:03→23:30)
[2025-03-14] MEDS: MULTIVIT/MIN/PREN/FOL AC/IRON TABLET 1 TAB PO (09:04)
[2025-03-14] MEDS: ESCITALOPRAM OXALATE 5 MG TABLET PO (09:04)
--- NOTE | 2025-03-14 09:09 | WPDANLDPN2 ---
Anes-Prog Note L&D Date/Time: 03/14/25 09:09 Comfortable throughout: labor and delivery Neuraxial method: epidural Epidural/Spinal procedure site: clean & non-tender Neuro status: Neuro function grossly intact. Cardiovascular status: normal Respiratory status: normal Airway patency: baseline Mental status: baseline Post-Op hydration status: normal Vital Signs: Last Vital Signs Temp 97.7 F 03/14/25 04:35 Pulse 66 03/14/25 04:35 Resp 16 03/14/25 04:35 BP 115/79 03/14/25 04:35 Pulse Ox 100 03/14/25 04:35 O2 Del Method Room Air 03/13/25 09:35 Pain score (VAS): 0 Post-procedural complaints: none Patient feedback: Patient satisfied with anesthetic care.
--- NOTE | 2025-03-14 09:44 | P.PNOB_ITS ---
OB - PN: Subj Subjective Date/time seen: 03/14/25 09:44 Narrative: Pain OK. Have continued Lexapro 5 mg po daily. OB - PN: Obj Data Labs 03/14/25 05:34 Labs: Laboratory Results - last 24 hr 03/13/25 03/14/25 10:28 05:34 WBC 5.9 RBC 3.52 L Hgb 9.0 L 9.3 L Hct 28.0 L 28.9 L MCV 79.5 L MCH 25.6 L MCHC 32.1 RDW 14.1 Plt Count 197 MPV 10.3 Immature Gran % (Auto) 0.5 Neut % (Auto) 69.4 Lymph % (Auto) 22.3 [place] % (Auto) 6.4 Eos % (Auto) 1.2 Baso % (Auto) 0.2 Lymph # (Auto) 1.32 [place] # (Auto) 0.4 Eos # (Auto) 0.1 Baso # (Auto) 0.0 Abs Immat Gran (auto) 0.03 Absolute Neuts (auto) 4.1 Absolute Nucleated RBC 0.000 Nucleated RBC % 0.0 Syphilis IgG/IgM Ab Non-reactive Blood Type A Negative A Negative Antibody Screen Positive TNP Antibody Identification Passive Due to RH Imm Glob Antigen Identification Cancelled MARIA ESTHER, IgG Interpret Not Performed MARIA ESTHER, Poly Interpret Neg MARIA ESTHER, Complement Interp Not Performed Screen Negative Baby's Blood Type A pos Baby's MARIA ESTHER Positive Doses of RhIg Required 1 OB - PN A/P Plan day: 1 Comments: A: PPD#1, doing well. P: Routine care. Plan home tomorrow. Exam 2 Psych: Other: AVSS ABD soft, nontender, fundus firm EXT nontender
[2025-03-14] MEDS: RHO(D) IMMUNE GLOBULIN 300 MCG/2 ML SYRINGE IM (12:47)
[2025-03-14 19:55] VITALS: BP 116/70; PULSE 84; RESP 16; TEMP 36.9; O2SAT 100
[2025-03-15] MEDS: IBUPROFEN 600 MG TABLET PO ×2 (05:24→10:58)
[2025-03-15 08:10] VITALS: BP 108/75; PULSE 69; RESP 16; TEMP 36.9; O2SAT 100
[2025-03-15] MEDS: MULTIVIT/MIN/PREN/FOL AC/IRON TABLET 1 TAB PO (08:53)
[2025-03-15] MEDS: DOCUSATE SODIUM 100 MG CAPSULE PO (08:53)
[2025-03-15] MEDS: ESCITALOPRAM OXALATE 5 MG TABLET PO (08:53)
--- NOTE | 2025-03-15 11:28 | PC.NURSE ---
Consulted with mother concerning needs and she shared her ability to independently latch infant optimally without pain. Mother is feeding appropriately for growth of and understands stimulating to eat if needed. Infant has had appropriate feedings in the last 24 hours meets the outcomes for weight, output, blood sugar and jaundice at this time. Reinforced understanding of milk production, transition of milk, signs of adequate intake, transition of stool, prevention/relief of engorgement, plugged ducts, mastitis, responsive watching for feeding cues, the different methods of stimulating to breastfeed 1-3 hours after the start of the last feeding, community resources, and when to call a provider using the resource of the feeding sheet along with the mom and baby guide. Mother voiced understanding of the information shared, is confident to continue effectively her infant at home, when to call for assistance, denies any additional assistance or education at this time. Reported to the Primary RN.
--- NOTE | 2025-03-15 13:22 | PM.OBDSVD ---
DS: Admitting Diagnosis Discharge Date 03/15/2025 Admitting Diagnosis DS: Discharge Diagnosis Discharge Diagnosis (1) , delivered: Code(s): O80 - Encounter for full-term uncomplicated delivery Status: Acute OB - DS: Summary OB Procedures : None OB Procedures Intrapartum: Spontaneous Vag Delivery OB Procedures: : None Peripartum Data Laceration Description: Perineal - 1st Degree Episiotomy description: None Time Spent with Patient Time attestation: Total time spent providing and/or coordinating discharge services: DS: Data Data Completed and Pending Labs on day of discharge: Labs from last 24 hours 03/14/25 05:34 Blood Type A Negative Antibody Screen TNP Screen Negative Baby's Blood Type A pos Baby's MARIA ESTHER Positive Doses of RhIg Required 1 Discharge Plan Discharge Attending physician on discharge: Damian Mitchell Discharging Clinician: Damian Mitchell Patient Disposition: Home Activity: pelvic rest Diet: regular Discharge Instructions: Call or return if temperature above 100.4? F, increased abdominal pain, increased vaginal bleeding or any new problems. Patient Language: Maltese Stand Alone Forms: General Discharge Information Follow-up/Referrals: Damian Mitchell MD [Physician, [employer]VOCATE] - Call for Appointment Discharge Medications: New ibuprofen 600 mg tablet 600 mg PO Q6H PRN (Reason: cramps) Qty: 30 0RF ibuprofen 600 mg Tablet 600 mg PO Q6H PRN (Reason: Cramping) Qty: 30 0RF Continued DHA 200 mg capsule PO ferrous sulfate 325 mg (65 mg iron) tablet 325 mg PO DAILY escitalopram oxalate [Lexapro] 5 mg tablet 5 mg PO DAILY Qty: 60 0RF Date of admission: 03/13/25 09:04 Primary Care Provider: UNKNOWN,DOCTOR Admitting Provider: Damian Mitchell Attending physician on admission: Damian Mitchell Condition: Stable
== END 2025-03-15 15:50 | disposition home or self-care (01) | DRG 807 ==
LOC: ANHLDR 03-17 08:15 → ANHOB2 03-17 08:15
PROVIDERS: Admitting Provider Obstetrics & Gynecology; Visit Provider Obstetrics & Gynecology
DX: O77.0 Labor and delivery complicated by meconium in amniotic fluid (principal); Z37.0 Single live birth; Z3A.39 39 weeks gestation of pregnancy; O70.0 First degree perineal laceration during delivery; O99.344 Other mental disorders complicating childbirth; F32.A Depression, unspecified; F41.9 Anxiety disorder, unspecified; Z86.16 Personal history of COVID-19
CPT/HCPCS: 36415; 85014; 85018; 85025; 85461; 86593; 86850; 86880; 86900; 86901; 90384; A9270; J2790; J2795; J7120